=== PATIENT | male | born 1970 | race Two or more races ===

== ENCOUNTER → 2020-06-08 11:42 | Outpatient (BNVA) | payer OTHER, SELFPAY | PROVIDERS: PCP Internal Medicine; Visit Provider Physician Assistant ==

== ENCOUNTER 2022-07-17 11:58 | Outpatient (REF) | payer OTHER, SELFPAY ==
[2022-07-17 14:30] LABS: Alanine Aminotransferase 21 U/L (0-40); Anion Gap 12 (12-20); Aspartate Amino Transferase 18 U/L (5-37); Blood Urea Nitrogen 14 mg/dL (9-16); Calcium 9.4 mg/dL (8.4-10.2); Carbon Dioxide 29 mmol/L (22-29); Chloride 105 mmol/L (96-108); Cholesterol 183 mg/dL; Estimated Glomerular Filt Rate > 60; Glucose Fasting 99 mg/dL (60-99); HDL Cholesterol 37 mg/dL; LDL Cholesterol Calculated 115 mg/dl; Potassium 4.4 mmol/L (3.3-5.1); Sodium 142 mmol/L (135-145); Triglycerides 158 mg/dL
[2022-07-17 14:45] LABS: PSA,Total (Free>4and<10) 0.41 ng/mL (0.00-4.00); Vitamin D 25-OH Total 24.7 ng/mL (>30)
[2022-07-25 13:57] LABS: Testosterone, Total 204 ng/dL (250-1100)
== END 2022-07-17 11:59 | disposition home or self-care (01) ==
LOC: HO.HMGCLDS 11:58
PROVIDERS: PCP Internal Medicine; Visit Provider Internal Medicine
DX: Z00.01 Encounter for general adult medical examination with abnormal findings (principal); Z12.5 Encounter for screening for malignant neoplasm of prostate; G47.33 Obstructive sleep apnea (adult) (pediatric); N52.9 Male erectile dysfunction, unspecified; E66.9 Obesity, unspecified
CPT/HCPCS: 36415; 80048; 80061; 82306; 84153; 84402; 84403; 84450; 84460

== ENCOUNTER → 2022-08-10 08:21 | Outpatient (BNVA) | payer OTHER, SELFPAY | PROVIDERS: PCP Internal Medicine; Visit Provider Nurse Practitioner Family | DX: Z13.89 Encounter for screening for other disorder (principal) ==

== ENCOUNTER → 2022-08-24 09:40 | Outpatient (REF) | payer OTHER, SELFPAY | LOC: HO.SL 09:40 | PROVIDERS: PCP Internal Medicine; Visit Provider Nurse Practitioner Family | DX: G47.33 Obstructive sleep apnea (adult) (pediatric) (principal); E66.9 Obesity, unspecified | CPT/HCPCS: 95806 ==

== ENCOUNTER → 2022-08-25 14:58 | Outpatient (BNVA) | payer OTHER, SELFPAY | PROVIDERS: PCP Internal Medicine; Visit Provider Nurse Practitioner Family | DX: Z13.89 Encounter for screening for other disorder (principal) ==

== ENCOUNTER → 2022-11-16 15:07 | Outpatient (BNVA) | payer OTHER, SELFPAY | PROVIDERS: PCP Internal Medicine; Visit Provider Nurse Practitioner Family | DX: E66.9 Obesity, unspecified (principal); G47.33 Obstructive sleep apnea (adult) (pediatric) ==

== ENCOUNTER 2023-05-21 14:02 | Outpatient (AMB) | payer OTHER, SELFPAY ==
--- NOTE | 2023-05-21 14:10 | A.OFFVIS_ITS ---
Intake Vital Signs 05/21/23 14:11 Height 5 ft 6 in Weight 200 lb BMI 32.3 BP 140/90 H Blood Pressure Location Rt brachial Position Sitting Pulse 66 Pulse Source Pulse Oximeter Pulse Oximetry (%) 97 Oxygen Delivery Method Room Air Intake Visit Reasons: 6m follow up JESÚS - LVM Intake Note: Pt complaints of elbow/arm neuropathy Allergies No Known Allergies Allergy (Verified 05/21/23 14:14) HPI HPI Comments History of Present Illness Details 52 y/o male patient presents for follow up of sleep study. The home sleep study result was significant for moderate degree of sleep apnea. The AHI was 22/hr and oxygen annia was 88%. Pt started APAP [id number] ordered. Pt states that he sleeps ok but uncomfortable. He feels too much pressure and having nasal congestion, too. The CPAP pressure was changed to [id number] at the last visit. The CPAP compliance and therapy response (02/20/23-05/20/23) reviewed. The usage days 91% and the average usage hours 4 hrs 50 min. The max pressure was 13.7 and the residual AHI was 2.7/hr. Pt reports he sleeps ok with CPAP but his mouth gets dry. He feels better in the morning, more alert and less tired. [facility] Medical History Low serum testosterone level Vitamin D deficiency Erectile dysfunction Obesity (BMI 30.0-34.9) Moderate obstructive sleep apnea Sleep apnea Surgical History No pertinent past surgical history Family History Mother Acute myocardial infarction, Onset Age: 72 Brother Diabetes mellitus Social History Housing: Apartment Alcohol intake: never Patient Tobacco Use Status: Never used Tobacco e-Cigarette/Vaping Use: Never Used service: No Current occupational status: employed Cognitive needs: No Hearing needs: No Vision needs: No Review of Systems Const All systems reviewed & are unremarkable except as noted in HPI and below ENT Reports Normal hearing present Neuro Reports Normal hearing present Physical Exam Vital Signs: Last Vital Signs Pulse 66 05/21/23 14:11 BP 140/90 H 05/21/23 14:11 Pulse Ox 97 05/21/23 14:11 Oxygen Delivery Method Room Air 05/21/23 14:11 BMI result Body Mass Index 28.7 Const General: cooperative Nutritional Appearance: obese Orientation/consciousness: patient oriented x3 Neck Neck: Yes full ROM and Yes supple Resp Effort & Inspection: normal respiratory effort and able to speak in complete sentences Neuro General: patient oriented x3, gait normal and moves all extremities Cranial nerves: Yes Bilaterally intact EOM present, Yes Midline tongue present, Yes Symmetric palate elevation present, Yes Normal hearing present, Yes Ability to bilaterally rotate head present and Yes Ability to bilaterally elevate shoulders present Cognition (Neuro): normal cognition Gait exam (Neuro): Normal gait present Motor exam (neuro): 5/5 motor strength present throughout, Pronator motor function not present and no tremor noted Psych Appearance: grossly normal Mental Status: mental status grossly normal Speech and movement: Normal speech and movement present Affect: normal affect Attitude: cooperative Assessment & Plan Assessment & Plan (1) Moderate obstructive sleep apnea: Comment: The AHI was 22/hr and oxygen annia was 88% Code(s): G47.33 - Obstructive sleep apnea (adult) (pediatric) Plan Advised patient to continue to use APAP at [id number]. Stressed compliance, use CPAP nightly and more than 4 hours. Adjust humidifier setting to manage dry mouth. Continue to practice good sleep hygiene. Wt reduction advised. Coding Level of Care Code Est Pt Level 3 (25722) Diagnoses Moderate obstructive sleep apnea G47.33
[2023-05-21 14:11] VITALS: BP 140/90; PULSE 66; O2SAT 97; BMI 32.3
== END 2023-05-21 14:30 | disposition home or self-care (01) ==
PROVIDERS: PCP Internal Medicine; Visit Provider Nurse Practitioner Family
DX: G47.33 Obstructive sleep apnea (adult) (pediatric) (principal)
CPT/HCPCS: 99213

== ENCOUNTER → 2023-05-21 14:02 | Outpatient (BNVA) | payer OTHER, SELFPAY | PROVIDERS: PCP Internal Medicine; Visit Provider Nurse Practitioner Family | DX: E66.9 Obesity, unspecified (principal); G47.33 Obstructive sleep apnea (adult) (pediatric) ==

== ENCOUNTER 2023-07-25 10:45 | Outpatient (AMB) | payer OTHER, SELFPAY ==
--- NOTE | 2023-07-25 11:08 | A.OFFPC_ITS ---
Vital Signs 07/25/23 11:23 Height 5 ft 6 in Weight 203 lb BMI 32.8 BP 100/62 Blood Pressure Location Lt brachial Position Sitting Pulse 65 Pulse Source Pulse Oximeter Pulse Oximetry (%) 98 Oxygen Delivery Method Room Air Intake Visit Reasons: Annual PE Intake Note: Pt is here today for his PE Allergies No Known Allergies Allergy (Verified 07/25/23 11:39) Medication List - Last Reconciled 07/25/23 by Sarah Larson MD ascorbate calcium (vitamin C) 500 mg PO DAILY cholecalciferol (vitamin D3) 5,000 units PO DAILY magnesium 300 mg PO DAILY multivitamin 1 tab PO DAILY Tobacco use date assessed: 07/25/23 Dental Screening Dental Screen Date: 07/25/23 Did you have a dental visit in the last 12 months?: No Was dental information given to patient?: Patient declined HPI Annual PE HPI Details 52-year-old male here today for his phys ical exam. He has been diagnosed with moderate obstructive sleep apnea sleep apnea in the past, was unable to tolerate CPAP.. Has been cleaning of feeling tired all the time, with interrupted sleep, increased fatigue. Would like to be referred back for repeat sleep study . Has been diagnosed to have hypogonadism with low serum testosterone, previously seen by [facility] see Urology, but has been lost to follow- up. As per patient and , they were not aware that he had repeat labs to be drawn, and was not given a follow-up appointment with them. Has been complaining of feeling tired all the time, and has recurrent joint pains and stiffness mainly in his elbows and knees as well as his lower back . 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 Patient states it is states that she has tried massaging arthritis cream, apply moist heat, and given him some Tylenol which has afforded only minimal relief. He has never had a screening colonoscopy done. Does not want to get any COVID vaccination or flu shot, up-to-date with his Tdap.. [facility] Medical History Low serum testosterone level Vitamin D deficiency Erectile dysfunction Obesity (BMI 30.0-34.9) Moderate obstructive sleep apnea Sleep apnea Surgical History No pertinent past surgical history Family History Mother Acute myocardial infarction, Onset Age: 72 Brother Diabetes mellitus Social History Housing: Apartment Alcohol intake: never Patient Tobacco Use Status: Never used Tobacco e-Cigarette/Vaping Use: Never Used service: No Current occupational status: employed Cognitive needs: No Hearing needs: No Vision needs: No Questionnaire PHQ-9 Over the last 2 weeks, how often have you been bothered by any of the following problems? Depression Screening Interpretation: Negative Depression Screening Done: Yes 89829 - PHQ-9 Billing: Patient declined-do not bill Source: Developed by Drs. Zan Barros, Cynthia Gupta, Harsha Bro and colleagues, with an educational trent from [employer]. Thrive Questionnaire Date Thrive assessed: 07/25/23 I am a: Patient What is your living situation today?: I have a steady place to live Within the past 12 months, did the food you bought not last and you didn't have the money to get more?: Sometimes True Within the past 12 months, did you worry whether your food would run out before you got money to buy more?: Sometimes True Do you have trouble paying for medicines?: No Do you have trouble getting transportation to medical appointments?: No Do you have trouble paying your heating and electricity bill?: Yes Do you have trouble taking care of your child, family member or friend?: No Do you have trouble with day-to-day activities such as bathing, preparing meals, shopping, managing finances, etc.?: Yes Are you currently unemployed and looking for a job?: No Are you interested in more education?: No THRIVE Score: 3 AUDIT C Alcohol Use Questionnaire (AUDIT-C) 1. How often do you have a drink containing alcohol?: Never Total Score: 0 WILFREDO-7 AMB Questionnaire WILFREDO-7 Date WILFREDO - 7 assessed: 07/25/23 Feeling nervous, anxious, or on edge: 1 = Several days Not being able to stop or control worryin = Not at all Worrying too much about different things: 1 = Several days Trouble relaxin = Several days (Due to recurrent joint pains) Being so restless that it is hard to sit still: 0 = Not at all Becoming easily annoyed or irritable: 1 = Several days Feeling afraid as if something awful might happen: 0 = Not at all Total WILFREDO-7 score (0-4 normal; 5-9 mild; 10-14 moderate; 15-21 severe): 4 Source: Developed by Drs. Zan Barros, Cynthia Gupta, Harsha Bro and colleagues, with an educational trent from [employer]. Review of Systems Const Denies headache(s), Denies poor appetite, Reports snoring and Denies weakness Eyes Details: has reading glasses, sees [facility] Denies change in vision ENT Denies dizziness, Denies headache(s), Denies nasal congestion, Denies nasal discharge and Denies sore throat Card Denies chest pain, Denies lightheadedness, Denies palpitations and Denies dyspnea Resp Denies dyspnea, Reports snoring and Denies wheezing GI Denies abdominal pain, Denies change in bowel habits and Denies heartburn Denies hematuria, Denies difficulty urinating, Denies dysuria, Denies urinary frequency and Denies urinary urgency Musc Reports as per HPI Skin/Breast Denies lesions and Denies rash Neuro Denies dizziness, Denies headache(s) and Denies weakness Psych Reports as per HPI Endo Denies polydipsia, Denies polyuria and Denies palpitations Dustin/Lymph Denies easy bruising Aller/Immun Denies seasonal rhinorrhea and Denies wheezing Physical exam (Primary Care) Vital Signs: Last Vital Signs Pulse 65 07/25/23 11:23 BP 100/62 07/25/23 11:23 Pulse Ox 98 07/25/23 11:23 Oxygen Delivery Method Room Air 07/25/23 11:23 BMI result Body Mass Index 32.8 Tobacco/Smoking Status: Tobacco use Status Tobacco use date assessed 07/25/23 07/25/23 11:29 Patient Tobacco Use Status Never used Tobacco 07/25/23 11:10 e-Cigarette/Vaping Use Never Used 07/25/23 11:10 Depression Screening Interpretation: Negative Thrive Assessment: Date of Thrive Assessment Date Thrive assessed 07/25/23 07/25/23 11:10 Const Other: present General: healthy appearing, comfortable, no acute distress and alert Nutritional Appearance: obese Orientation/consciousness: patient oriented x3 [facility] Head: Yes normocephalic Ears: hearing grossly normal bilaterally and external ears normal General nose exam: Normal external nose present and No nasal discharge present Face and sinus: Yes face symmetric Mouth: Normal oral and palatal mucosa present, oropharynx normal and moist mucous membranes Eyes General: appearance normal, both eyes and all related structures Pupils: Equal, round and reactive pupils present EOM: EOMs intact bilaterally Neck Neck: Yes full ROM, Yes no lymphadenopathy and Yes supple Thyroid: Thyroid normal Chest Chest palpation & inspection: normal inspection of the chest Resp Effort & Inspection: normal respiratory effort and able to speak in complete sentences Auscultation: clear to auscultation bilaterally Cardio Rate: regular rate Rhythm: regular rhythm Heart sounds: S1 normal heart sound present and S2 normal heart sound present Bruits: no abdominal aortic bruits GI Palpation (GI): No Abdominal aortic bruit present, Soft to palpation, nontender and no masses Auscultation: normal bowel sounds General: Yes no CVA tenderness Male General Exam: Yes normal external exam Penis: normal penis Back/Spine/Pelvis Back: no CVA tenderness Skin General skin exam: no rashes or lesions noted Lesions: no lesions Rashes: no rashes Neuro General: patient oriented x3, gait normal, moves all extremities, Normal light touch and pain sensation, no focal motor deficits and CN's II-XI intact bilaterally Cranial nerves: Yes Equal, round and reactive pupils present Cognition (Neuro): normal cognition Gait exam (Neuro): Normal gait present Motor exam (neuro): 5/5 motor strength present throughout Extrem Other: Slight tenderness on palpation over left lateral epicondylar area, with no gross bone deformity or joint swelling seen. Full range of motion of joint noted General: Yes full ROM, Yes no joint enlargement, Yes no clubbing, cyanosis or edema, Yes no calf tenderness and Yes normal gait Psych Appearance: grossly normal Mental Status: mental status grossly normal Speech and movement: Normal speech and movement present Affect: normal affect Attitude: cooperative Thought process: Normal thought process present Thought content: Normal thought content present Assessment and Plan Assessment & Plan (1) Annual visit for general adult medical examination with abnormal findings: Code(s): Z00.01 - Encounter for general adult medical examination with abnormal findings Plan: Will check appropriate labs. Recommended dental visit every 6 months and regular eye exams, at least every 2 years. Take adequate calcium in diet and vitamin-D 3 at 2000 IU per cap once a day, in addition to weight-bearing exercises to help maintain good muscle tone and weight control. Patient declined getting COVID vaccine or flu shot, reminded to get his shingles vaccine, up-to-date with his Tdap (2) Vitamin D deficiency: Code(s): E55.9 - Vitamin D deficiency, unspecified Plan: Ordered the vitamin-D level (3) Obesity (BMI 30.0-34.9): Code(s): E66.9 - Obesity, unspecified Plan: Recommended focusing on improving your health instead of dieting. : Eat Mediterranean diet, limit foods high in fat, sugar, and calories, eat slowly, pay attention to portion sizes, plan your meals ahead of time, continue with regular exercise. (4) Colon cancer screening: Code(s): Z12.11 - Encounter for screening for malignant neoplasm of colon Plan: GI consult ordered for colon cancer screening (5) Low serum testosterone level: Code(s): R79.89 - Other specified abnormal findings of blood chemistry Plan: Inform patient that his urologist ordered repeat labs to be done, advised to schedule appointment with Urology for follow-up after labs were done peer (6) Moderate obstructive sleep apnea: Comment: The AHI was 22/hr and oxygen annia was 88% Code(s): G47.33 - Obstructive sleep apnea (adult) (pediatric) Orders: Orders Vitamin D 25-OH Total 07/25/23 E55.9 - Vitamin D deficiency, unspecified, E66.9 - Obesity, unspecified, Z00.01 - Encounter for general adult medical examination with abnormal findings Varicella IgG Antibody 07/25/23 Z01.84 - Encounter for antibody response examination Comprehensive [place]. Panel Fast 07/25/23 E55.9 - Vitamin D deficiency, unspecified, E66.9 - Obesity, unspecified, Z00.01 - Encounter for general adult medical examination with abnormal findings Lipid Panel 07/25/23 E55.9 - Vitamin D deficiency, unspecified, E66.9 - Obesity, unspecified, Z00.01 - Encounter for general adult medical examination with abnormal findings Referrals Gastroenterology Referral Z12.11 - Encounter for screening for malignant neoplasm of colon Sleep Medicine Referral G47.33 - Obstructive sleep apnea (adult) (pediatric), R06.83 - Snoring, R40.0 - Somnolence, R53.83 - Other fatigue Coding Level of Care Code Est Pt Prev Care 40-64y(85435) Diagnoses Annual visit for general adult medical examination with abnormal findings Z00.01 Vitamin D deficiency E55.9 Obesity (BMI 30.0-34.9) E66.9 Colon cancer screening Z12.11 Low serum testosterone level R79.89 Moderate obstructive sleep apnea G47.33
[2023-07-25 11:23] VITALS: BP 100/62; PULSE 65; O2SAT 98; BMI 32.8
== END 2023-07-25 12:18 | disposition home or self-care (01) ==
PROVIDERS: Visit Provider Internal Medicine
DX: Z00.00 Encounter for general adult medical examination without abnormal findings (principal); E55.9 Vitamin D deficiency, unspecified; E66.9 Obesity, unspecified; Z68.32 Body mass index [BMI] 32.0-32.9, adult; Z12.11 Encounter for screening for malignant neoplasm of colon; R79.89 Other specified abnormal findings of blood chemistry; G47.33 Obstructive sleep apnea (adult) (pediatric)
CPT/HCPCS: 99396

== ENCOUNTER 2023-07-26 06:09 | Outpatient (REF) | payer OTHER, SELFPAY ==
[2023-07-26 12:22] LABS: Alanine Aminotransferase 29 U/L (0-40); Albumin Level 4.3 g/dL (3.5-5.0); Alkaline Phosphatase 70 U/L (39-117); Anion Gap 14 (12-20); Aspartate Amino Transferase 25 U/L (5-37); Bilirubin Total 0.5 mg/dL (0.0-1.0); Blood Urea Nitrogen 10 mg/dL (9-16); Calcium 9.8 mg/dL (8.4-10.2); Carbon Dioxide 27 mmol/L (22-29); Chloride 104 mmol/L (96-108); Cholesterol 179 mg/dL (<200); Estimated Glomerular Filt Rate > 60; Glucose Fasting 101 mg/dL (60-99); HDL Cholesterol 43 mg/dL (>40); LDL Cholesterol Calculated 118 mg/dL (<100); Potassium 4.6 mmol/L (3.3-5.1); Sodium 140 mmol/L (135-145); Total Protein 7.3 g/dL (6.5-8.0); Triglycerides 91 mg/dL (<150)
[2023-07-26 12:48] LABS: Vitamin D 25-OH Total 56.1 ng/mL (>30)
== END 2023-07-26 06:10 | disposition home or self-care (01) ==
LOC: HO.HMGCLDS 06:09
PROVIDERS: PCP Internal Medicine; Visit Provider Internal Medicine
DX: Z00.01 Encounter for general adult medical examination with abnormal findings (principal); E55.9 Vitamin D deficiency, unspecified; E66.9 Obesity, unspecified
CPT/HCPCS: 36415; 80053; 80061; 82306; 86787

== ENCOUNTER 2023-10-29 11:02 | Outpatient (AMB) | payer OTHER, SELFPAY ==
--- NOTE | 2023-10-29 11:17 | A.OFFVIS_ITS ---
Vital Signs 10/29/23 11:38 Height 5 ft 6 in Weight 197 lb 1.492 oz BMI 31.8 BP 108/66 Blood Pressure Location Lt brachial Position Sitting Pulse 60 Pulse Source Pulse Oximeter Pulse Oximetry (%) 98 Oxygen Delivery Method Room Air Intake Visit Reasons: Colonoscopy Screening Intake Note: Andrea presents in office today for a routine colo s/p scrn CC; Pt denies any prior hx of colo s/p. Pt reports that their PCP recommended based off of age. Pt denies any sx or concerns at this time related to GI. 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 male with past medical history of lymphadenopathy, JESÚS, vitamin-D deficiency is here today for pre colonoscopy screening.? Patient was sent to us by his PCP.? Patient is accompanied by his . This is his first colonoscopy screening.? Patient denies any gastrointestinal symptoms in the past or at present.? Denies any personal or family history of gastrointestinal disease, colon polyps, or CRC.? Denies history of difficulty with sedation or anesthesia in the past.? History of sleep apnea, using CPAP every night. Denies any history of cardiac, renal, pulmonary, or hepatic disease.?? No history of infectious? diseases like hepatitis A, B, C, HIV or tuberculosis.? Patient is not on any anticoagulation [facility] Medical History Low serum testosterone level Vitamin D deficiency Erectile dysfunction Obesity (BMI 30.0-34.9) Moderate obstructive sleep apnea Sleep apnea Surgical History No pertinent past surgical history Family History Mother Acute myocardial infarction, Onset Age: 72 Brother Diabetes mellitus Social History Housing: Apartment Alcohol intake: never Patient Tobacco Use Status: Never used Tobacco e-Cigarette/Vaping Use: Never Used service: No Current occupational status: employed Cognitive needs: No Hearing needs: No Vision needs: No Review of Systems Const Denies weight gain and Denies weight loss ENT Reports no additional complaints, Denies dysphagia and Denies odynophagia Card Reports no additional complaints Resp Reports no additional complaints GI Denies abdominal pain, Denies belching, Denies melena, Denies bloating, Denies change in bowel habits, Denies dysphagia, Denies excessive flatus, Denies dyspepsia, Denies heartburn, Denies diarrhea, Denies loose stools, Denies nausea, Denies odynophagia and Denies vomiting Reports no additional complaints Musc Reports no additional complaints Neuro Reports no additional complaints Psych Reports no additional complaints Endo Reports no additional complaints Physical Exam Vital Signs: Last Vital Signs Pulse 60 10/29/23 11:38 BP 108/66 10/29/23 11:38 Pulse Ox 98 10/29/23 11:38 Oxygen Delivery Method Room Air 10/29/23 11:38 BMI result Body Mass Index 31.8 Const General: healthy appearing and no acute distress Nutritional Appearance: obese Orientation/consciousness: patient oriented x3 Resp Effort & Inspection: normal respiratory effort, able to speak in complete sentences, no tracheal deviation and symmetric chest movement Auscultation: clear to auscultation bilaterally Cardio Rate: regular rate GI Inspection: Yes normal to inspection, No distended and Yes obesity Palpation (GI): Soft to palpation, not firm, nontender and No hepatosplenomegaly present Auscultation: normal bowel sounds General: Yes no CVA tenderness Back/Spine/Pelvis Back: no CVA tenderness Skin General skin exam: elasticity normal, turgor normal and dry skin Neuro General: patient oriented x3 Psych Appearance: grossly normal Mental Status: mental status grossly normal Assessment & Plan Assessment & Plan (1) Colon cancer screening: Code(s): Z12.11 - Encounter for screening for malignant neoplasm of colon Plan Patient denies any GI, cardiac or respiratory symptoms.? Denies any issues with anesthesia in the past.?Patient has sleep apnea and has been using CPAP every night. No history infectious diseases in the past or present.? Not on any anticoagulation therapy.? No family or personal history of colon cancer or polyps.? Patient denies melena, hematochezia, unintentional weight loss or ribbon like stools.? Discussed at length the pre-procedure,? prep, diet & medications as well as what to expect prior, during and after the procedure.?? Stressed the importance of good bowel prep.? Recommended the use of Vaseline or Calmoseptine OTC & baby wipes with bowel movements to promote comfort.? ?Patient verbalizes understanding and agrees to plan of care.? He was given the opportunity to ask questions and all questions answered.? We will see him after the procedure.? Medications: New bisacodyl (Dulcolax (bisacodyl)) take 4 tabs at noon the day before your colonoscopy 20 mg (4 x 5 mg) PO ONCE 1 day 4 tabs 0RF Z12.11 - Encounter for screening for malignant neoplasm of colon polyethylene glycol 3350 (Miralax) As directed by gastroenterology department at [facility] 238 grams PO ONCE 238 grams 0RF Z12.11 - Encounter for screening for malignant neoplasm of colon Coding Level of Care Code New Pt Level 3 (15769) Diagnoses Colon cancer screening Z12.11 Time Spent (min) 40 Comment 30 minutes spent with patient and additional 10 minutes spent reviewing his records
[2023-10-29 11:38] VITALS: BP 108/66; PULSE 60; O2SAT 98; BMI 31.8
== END 2023-10-29 12:48 | disposition home or self-care (01) ==
PROVIDERS: PCP Internal Medicine; Visit Provider Nurse Practitioner Family
DX: Z12.11 Encounter for screening for malignant neoplasm of colon (principal); Z01.818 Encounter for other preprocedural examination
CPT/HCPCS: 99203

== ENCOUNTER → 2023-10-29 11:02 | Outpatient (BNVA) | payer OTHER, SELFPAY | PROVIDERS: PCP Internal Medicine; Visit Provider Nurse Practitioner Family ==

== ENCOUNTER 2024-05-21 15:20 | Outpatient (AMB) | payer OTHER, SELFPAY ==
--- NOTE | 2024-05-21 15:44 | MHC.OFFVIS ---
Vital Signs 05/21/24 15:48 Height 5 ft 6 in Weight 190 lb 2 oz BMI 30.7 BP 100/70 Blood Pressure Location Lt brachial Position Sitting Pulse 78 Pulse Oximetry (%) 98 Oxygen Delivery Method Room Air Intake Visit Reasons: 1 yr f/u appt Figure Skater Required: No Allergies No Known Allergies Allergy (Verified 05/21/24 15:48) Medication List - Last Reconciled 05/21/24 by CARRIE Swanson ascorbate calcium (vitamin C) 500 mg PO DAILY bisacodyl (Dulcolax (bisacodyl)) 20 mg (4 x 5 mg) PO ONCE 1 day cholecalciferol (vitamin D3) 5,000 units PO DAILY magnesium 300 mg PO DAILY multivitamin 1 tab PO DAILY polyethylene glycol 3350 (Miralax) 238 grams PO ONCE Do you need a note to return to daycare/school/sports/work: No HPI Comments Details: 53 y/o male patient presents for follow up of moderate obstructive sleep apnea. Patient is accompanied by his . Patient reports overall he is not tolerating his Pap therapy well. He often feels like he is suffocating, especially when he inhales. Even while using CPAP, he continues to snore at the same level. He is also having dry mouth. He uses plane tap water in his CPAP water reservoir. He continues to have daytime drowsiness. He does drive quite a bit for work. He states he had a ENT consult last year some time, was told that he has multiple allergies and was advised to take Flonase nasal spray. He states he does a nasal saline rinse and Flonase, however this has not significantly helped. 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 [address], [address] Email: [email or web address] Compliance Report Usage 04/21/2024 - 05/20/2024 Usage days 26/30 days (87%) >= 4 hours 13 days (43%) < 4 hours 13 days (43%) Usage hours 115 hours 52 minutes Average usage (total days) 3 hours 52 minutes Average usage (days used) 4 hours 27 minutes Median usage (days used) 3 hours 46 minutes Total used hours (value since last reset - 05/20/2024) 1,975 hours AirSense 10 AutoSet Serial number [id number] Mode AutoSet Min Pressure 5 cmH2O Max Pressure 15 cmH2O EPR Fulltime EPR level 3 Response Standard Therapy Pressure - cmH2O Median: 8.1 95th percentile: 12.5 Maximum: 13.6 Leaks - L/min Median: 9.9 95th percentile: 23.2 Maximum: 34.7 Events per hour AI: 3.6 HI: 0.7 AHI: 4.3 PFSH Medical History Low serum testosterone level Vitamin D deficiency Erectile dysfunction Obesity (BMI 30.0-34.9) Moderate obstructive sleep apnea Sleep apnea Surgical History No pertinent past surgical history Family History Mother Acute myocardial infarction, Onset Age: 72 Brother Diabetes mellitus Social History Housing: Apartment Alcohol intake: never Patient Tobacco Use Status: Never used Tobacco e-Cigarette/Vaping Use: Never Used service: No Current occupational status: employed Cognitive needs: No Hearing needs: No Vision needs: No Physical Exam Vital Signs: Last Vital Signs Pulse 78 05/21/24 15:48 BP 100/70 05/21/24 15:48 Pulse Ox 98 05/21/24 15:48 Oxygen Delivery Method Room Air 05/21/24 15:48 BMI result Body Mass Index 30.7 Const General: no acute distress Orientation/consciousness: patient oriented x3 Resp Effort & Inspection: able to speak in complete sentences Neuro General: patient oriented x3 Psych Mental Status: mental status grossly normal Speech and movement: Clear speech present Attitude: cooperative Assessment & Plan Assessment & Plan (1) Moderate obstructive sleep apnea: Comment: The AHI was 22/hr and oxygen annia was 88% Code(s): G47.33 - Obstructive sleep apnea (adult) (pediatric) Category: Medical Plan Reviewed results of sleep study report, results c/w moderate obstructive sleep apnea. Discussed complications a/w untreated JESÚS, including but not limited to accidents related to drowsy driving. 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 Pap settings changed via pt's [employer] Account in hopes that this will improve PAP tolerance. Discontinue APAP 5-15 cm H2O with EPR 3 and humidification level 4. Start CPAP 8 cm H2O EPR 3 humidification level set to 5, with goal of using PAP therapy nightly greater than 4 hours in order to have best clinical effect. Will check Pap compliance report in 2 weeks to assess efficacy. Patient also encouraged to use only distilled water in his CPAP water reservoir. Continue saline nasal rinses followed by Flonase per ENT. Try adding as a lasting nasal spray 1-2 sprays into each nares q.h.s- the proper administration technique reviewed with patient. If the above changes do not help with oral dryness, trial OTC Xylimelt 1-2 tabs attached gum q.h.s. Will also request patient follow-up with ENT to assess for alternate sleep apnea treatment interventions to PAP therapy. Did discuss that patient may be a good candidate for inspire device, which he was unfamiliar with. I have asked him to review this more, and explained that ENT would need to complete further evaluations to determine if he truly would be a good candidate for this. Clean CPAP machine and supplies routinely. Change CPAP supplies routinely. Pt to contact us or respiratory company with any questions or concerns. Written instructions given to patient Will follow-up upon review of above and patient to follow-up in clinic in 6 months or sooner prn. Orders: Referrals Ear/Nose/Throat Referral G47.33 - Obstructive sleep apnea (adult) (pediatric) Medications: New fluticasone propionate 50 mcg/actuation administer into each nostril 2 sprays intranasal DAILY PRN azelastine administer into each nostril 2 sprays intranasal BID 30 days 30 mL 3RF Coding Level of Care Code Est Pt Level 4 (13409) Diagnoses Moderate obstructive sleep apnea G47.33
[2024-05-21 15:48] VITALS: BP 100/70; PULSE 78; O2SAT 98; BMI 30.7
== END 2024-05-21 16:27 | disposition home or self-care (01) ==
PROVIDERS: PCP Internal Medicine; Visit Provider Nurse Practitioner Family
DX: G47.33 Obstructive sleep apnea (adult) (pediatric) (principal)
CPT/HCPCS: 99214

== ENCOUNTER → 2024-05-21 15:20 | Outpatient (BNVA) | payer OTHER, SELFPAY | PROVIDERS: PCP Internal Medicine; Visit Provider Nurse Practitioner Family ==

== ENCOUNTER 2024-06-12 10:19 | Day surgery (SDC) | payer BC, SELFPAY ==
[2024-06-10 14:55] VITALS: BMI 30.7
--- NOTE | 2024-06-11 11:58 | HO.ANESPROP2 ---
Documented by User: Shania Newsome NP 06/11/24 11:59 HPI - Anesthesia Eval Consult details Narrative: 53yo M for Colonoscopy PMFSH Active Problems Active Problems: All Active Problems Lymphadenopathy, axillary (Acute) Low serum testosterone level (Acute) Vitamin D deficiency (Acute) Erectile dysfunction (Acute) Obesity (BMI 30.0-34.9) (Acute) Moderate obstructive sleep apnea (Acute) Past Medical History Medical History Low serum testosterone level Vitamin D deficiency Erectile dysfunction Obesity (BMI 30.0-34.9) Moderate obstructive sleep apnea Family History Family History Mother Acute myocardial infarction, Onset Age: 72 Brother Diabetes mellitus Surgical History Surgical History No pertinent past surgical history Social History Social History Housing: Apartment Alcohol intake: never Patient Tobacco Use Status: Never used Tobacco e-Cigarette/Vaping Use: Never Used Have you been hit, kicked, punched, or otherwise hurt by someone within the past year? If so, by whom?: No Are you DNR?: No Advance Directives: No Advance Directives Information Provided: Yes service: No Current occupational status: employed Cognitive needs: No Hearing needs: No Vision needs: No Meds Allergies Allergy/AdvReac Type Severity Reaction Status Date / Time No Known Allergies Allergy Verified 05/21/24 15:48 Home Medications ?Medication ?Instructions ?Recorded ?Confirmed ?Last Taken ?Type ascorbate calcium (vitamin C) 500 500 mg PO DAILY 07/25/23 06/10/24 Unknown History mg tablet magnesium 200 mg tablet 300 mg PO DAILY 07/25/23 06/10/24 Unknown History multivitamin 1 tab PO DAILY 07/25/23 06/10/24 Unknown History fluticasone propionate 50 2 spray intranasal DAILY PRN Nasal 05/21/24 06/10/24 Unknown History mcg/actuation nasal Congestion spray,suspension Exam Height,Weight and Vital Signs: Height 5 ft 6 in Weight 86.183 kg Assessment and Plan Assessment Anesthesia Assessment: Chart Reviewed Documented by User: Cheryl Benitez MD 06/12/24 11:35 PMFSH Active Problems Active Problems: All Active Problems Lymphadenopathy, axillary (Acute) Low serum testosterone level (Acute) Vitamin D deficiency (Acute) Erectile dysfunction (Acute) Obesity (BMI 30.0-34.9) (Acute) Moderate obstructive sleep apnea. Uses CPAP machine Past Medical History Medical History Low serum testosterone level Vitamin D deficiency Erectile dysfunction Obesity (BMI 30.0-34.9) Moderate obstructive sleep apnea Family History Family History Mother Acute myocardial infarction, Onset Age: 72 Brother Diabetes mellitus Family history of problems with anesthesia: No Surgical History Surgical History No pertinent past surgical history History of Problems with Anesthesia: No Social History Social History Housing: Apartment Alcohol intake: never Patient Tobacco Use Status: Never used Tobacco e-Cigarette/Vaping Use: Never Used Have you been hit, kicked, punched, or otherwise hurt by someone within the past year? If so, by whom?: No Are you DNR?: No Advance Directives: No Advance Directives Information Provided: Yes service: No Current occupational status: employed Cognitive needs: No Hearing needs: No Vision needs: No Meds Allergies Allergy/AdvReac Type Severity Reaction Status Date / Time No Known Allergies Allergy Verified 05/21/24 15:48 Home Medications ?Medication ?Instructions ?Recorded ?Confirmed ?Last Taken ?Type ascorbate calcium (vitamin C) 500 500 mg PO DAILY 07/25/23 06/10/24 Unknown History mg tablet magnesium 200 mg tablet 300 mg PO DAILY 07/25/23 06/10/24 Unknown History multivitamin 1 tab PO DAILY 07/25/23 06/10/24 Unknown History fluticasone propionate 50 2 spray intranasal DAILY PRN Nasal 05/21/24 06/10/24 Unknown History mcg/actuation nasal Congestion spray,suspension Exam Height,Weight and Vital Signs: Height 5 ft 6 in Weight 86.183 kg Vital Signs Temp Pulse Resp BP Pulse Ox O2 Del Method 06/12/24 11:06 98.4 F 63 18 115/79 99 Room Air Airway Mallampati Class: III (Slight overbite ) TM Dist: >3cm Neck ROM: Full Loose/Missing/Broken Teeth: Yes (Missing some teeth back. Denies broken or loose teeth) Heart: RRR Lungs: CTAB Assessment and Plan Assessment Anesthesia Assessment: Anesthesia Plan Discussed and Chart Reviewed Final Anesthetic Review Family History of Problems with Anesthesia: No History of Problems with Anesthesia: No NPO: Yes ASA Class: III Final Preanesthetic Review: No Changes in Pt Med Stat, Meds/Allgs Chart Reviewed, Consent Obtained/Reviewed and Anes Risks/Benef Reviewed Patient Risk: Intermediate Procedure Risk: Low Assessment/Block/Sedation in SS: Assess/Block/Sedation-SS Anesthetic Plan Anesthetic Plan: TIVA Disposition: Standard PACU
[2024-06-12 11:06] VITALS: BP 115/79; PULSE 63; RESP 18; TEMP 36.9; O2SAT 99
[2024-06-12] MEDS: Lactated Ringers 1,000 ML 100 ML IVCONT (11:24)
--- NOTE | 2024-06-12 12:27 | MHC.SHP ---
Pre-Procedural Eval Section A - 24 Hr Update-Section A only Date of Service: 06/12/24 Section B - Complete if H&P > 30 days Chief Complaint: screening Relevant Family History (Specify if Yes): No Relevant Social History: None Present Medications: see Short Stay Collaborative assessment Medical History: Significant History (Low serum testosterone level Vitamin D deficiency Erectile dysfunction Obesity (BMI 30.0-34.9) Moderate obstructive sleep apnea) History of Previous Operations: No relevant previous surgery Allergies: Allergies Allergy/AdvReac Type Severity Reaction Status Date / Time No Known Allergies Allergy Verified 05/21/24 15:48 Review of Systems Sugical H&P ROS: Negative: Constitution, Cardiovascular, Respiratory, Neurological, Psychiatric, Hem-Onc, Allergic/Immunologic, Gastrointestinal, Genitourinary, Musculoskeletal, Integumentary, Endocrine and Eyes/Ears/Nose/Throat Exam Surgical H&P Exam: Normal: HEENT, Normal: Heart, Normal: Lungs, Normal: Extremities, Normal: Abdomen, Normal: Skin and Normal: Neurological Plan Diagnosis/Plan: Unchanged I have reviewed the history and physical and performed a pertinent physical examination on my patient. No changes have occurred unless specified. Time Spent With Patient Time: Total time managing care of this patient today ____ minutes.
--- NOTE | 2024-06-12 13:05 | HO.OPN-COLON ---
Colonoscopy Operative Note Operative Note Date of Service: 06/12/24 Narrative: Operative Information Procedure Description: Colonoscopy Indication: screening Anesthesia: MAC COLONOSCOPY Instrument: Olympus variable stiffness pediatric scope 190L Colonoscopy Monitoring: Vital signs and clinical assessment, continuous EKG monitoring, Pulse oximetry, Carbon Dioxide monitoring and blood pressure monitoring were done throughout the procedure. Colon withdrawal time was 10 minutes. Procedure: The patient was placed in the left lateral decubitis position and pre-procedure medications were administered. After a digital rectal examination of the ano-rectum, the video colonoscope was inserted into the rectum and advanced through the colon to the cecum/TI. The colonoscope was slowly withdrawn in a retrograde panoramic fashion and the colon mucosa was carefully examined including a retroflexed view of the rectum. Findings and interventions are described below. Procedure Difficulty: easy Findings: Terminal Ileum-normal Cecum:normal right sided retrofelxion- normal Ascending Colon: normal Transverse Colon -normal Descending Colon: 3-4 mm sessile polyp removed with cold forceps Sigmoid Colon: mild to moderate diverticulosis Rectum: Retroflexion with small internal hemorrhoids seen, grade I Anorectum - normal Intervention: cold forceps Colon preparation: Bagwell Bowel Preparation Scale Right colon; 2 Transverse colon: 2 Left colon; 2 (0 = Unprepared colon segment with mucosa not seen due to solid stool that cannot be cleared. 1 = Portion of mucosa of the colon segment seen, but other areas of the colon segment not well seen due to staining, residual stool and/or opaque liquid. 2 = Minor amount of residual staining, small fragments of stool and/or opaque liquid, but mucosa of colon segment seen well. 3 = Entire mucosa of colon segment seen well with no residual staining, small fragments of stool or opaque liquid) Impression and Post Procedure Diagnosis: diverticulosis colon polyp internal hemorrhoids Plan: High fiber diet leaflet Avoid straining at stool, epsom salts and sitz bath, anusol supps or cream Repeat Colonoscopy in 5-7 years if adenomatous polyp, 10 yrs if hyperplastic or earlier if clinically indicated Above findings were reviewed with the patient and relevant handouts were provided if indicated.
[2024-06-12 13:10] VITALS: BP 93/52; PULSE 62; RESP 16; TEMP 36.1; O2SAT 99
[2024-06-12 13:25] VITALS: BP 106/56; PULSE 66; RESP 16; O2SAT 98
--- OUTSIDE RECORDS SUMMARY | 2024-06-12 13:47 | XMS_ITS | Clinical Summary ---
Author Organization [employer] [facility] Address [address] [place] [address] Care Team Providers Care Colors Custodian Name Role Phone Conor Mathew MD Primary Care Prov ider Allergies No known active allergies Medications tadalafil (Cialis) 10 MG tablet Take 1 tablet (10 mg) by mouth if needed each day for erectile dysfunction. 30 tablet 05/29/2024 06/28/19 25 Active Active Problems Problem Noted Date Diagnosed Date Encounter for medical examination to establish c are 05/29/2024 Assessment & Plan (05/29/2024 12:31 AM EST): Last pcp follow up 3 months ago Hx hospitalziation: - Er visit in the past year: - Pmhx: ED Pshx:- All:- Meds: Cilis 10mg Screening for colon cancer 05/29/2024 Assessment & Plan (05/29/2024 12:32 AM EST): Patient refer he has a scheduled GI appointment for April, will follow up reccomendations Erectile dysfunction 05/29/2024 Assessment & Plan (05/29/2024 12:35 AM EST): Patient denied morning erections, will prescribe cialis, follow up as needed Encounters Date Type Department Care Team Description 04/07/2024 1:45 PM EST Telemedicine [facility]EDS [address] [place], [place] [phone] Conor Mathew MD Encounter for medical examination to establish care (Primary Dx); Screening for colon cancer; Erectile dysfunction, unspecified erectile dysfunction type 04/07/2024 Travel 03/21/2024 Telephone [facility] MEDIC[facility] [address] [place] [address] Conor Mathew MD New pt appt from Last 3 Months Family History Medical History Relation Name Comments Prostate cancer Father Coronary artery disease Mother Relation Name Status Comments Father Mother Social History Tobacco Use Types Packs/Day Years Used Date Smoking Tobacco: Never Smokeless Tobacco: Never Tobacco Cessation:Counseling Given: Not Answered Alcohol Use Standard Drinks/Week Comments Never 0 (1 standard drink = 0.6 oz pur e alcohol) Depression Answer Date Recorded Patient Health Questionnaire-9 Score 4 04/07/2024 Patient Health Questionnaire-9 Score 4 04/07/2024 Last PHQ-9: Questionnaire Data Not on file 1 06/07/2023 Housing Stability Answer Date Recorded What is your housing situation today? I have dora arthur 04/07/[address] you li ve. Do you have problems with any of the following? None of the above 04/07/2024 Food Insecurity Answer Date Recorded Within the past 12 months, y ou worried that your food would run out before you got money to buy more: Never True 04/07/2024 Within the past 12 months,th e food you bought just didn't last and you didn't have enough money to get more: Never True Transportation Answer Date Recorded In the past 12 months, has l ack of transportation kept you from medical appts, meetings, work or from getting things needed for daily living? No 04/07/2024 Utilities Answer Date Recorded In the past 12 months, has t he electric, gas, oil or water company threatened to shut off services in your home? No 04/07/2024 Depression Answer Date Recorded Patient Health Questionnaire-2 Score 2 04/07/2024 Internet Access Answer Date Recorded Internet Access Q1 Yes 04/07/2024 Internet Access Q2 Not on file 04/07/2024 Comments Unknown Sex and Gender Information Value Date Recorded Sex Assigned at Unknown 01/28/2024 1:40 PM EDT Legal Sex Male 1:24 PM EDT Gender Identity Male 01/28/2024 1:40 PM EDT Sexual Orientation Don't know 01/28/2024 1: 40 PM EDT Plan of Treatment Upcoming Encounters Date Type Department Care Team (Late st Contact Info) Description 06/23/2024 2:30 PM EST Office Visit [facility] MED & PEDS [address] [place] [address] Conor Mathew MD [address] [place] [address] Health Maintenance Due Date Last Done Comments CT Colonography 1968 Colonoscopy 1968 Colorectal Cancer Screening 1968 FIT DNA/Cologuard 1968 FIT 1968 FOBT 1968 HIV Screening 1968 Lipid Panel 1968 Sigmoidoscopy 1968 Alcohol/Substance Use Screening 1980 Hepatitis C Screening 1986 DTaP/Tdap/Td Vaccines (1 - Tdap) 10/07/1987 Hepatitis B Vaccines (1 of 3 - 19+ 3-dose series) 10/07/1987 Zoster Vaccines (1 of 2) 2018 COVID-19 Vaccine ( - 2023-2 5 season) 2024 Influenza Vaccine (#1) 2024 Depression Screening 04/07/2025 04/07/2024, 04/07/2024 SDOH Screening 04/07/2025 04/07/2024 Tobacco Screening 05/29/2025 05/29/2024 RSV Patients and Patients Aged 60 years or older (1 - 1-dose 75+ series) 10/07/2043 HIB Vaccines Aged Out No longer eligi ble based on patient's age to complete this topic HPV Vaccines Aged Out No longer eligi ble based on patient's age to complete this topic Hepatitis A Vaccines Aged Out No long er eligible based on patient's age to complete this topic IPV Vaccines Aged Out No longer eligi ble based on patient's age to complete this topic Meningococcal Vaccine Aged Out No katja lakshmi eligible based on patient's age to complete this topic Pneumococcal Vaccine: Pediatrics (0 to 5 Years) and At-Risk Patients (6 to 49) Years) Aged Out No longer eligible b ased on patient's age to complete this topic RSV under 20 months Aged Out No longe r eligible based on patient's age to complete this topic Rotavirus Vaccines Aged Out No longer eligible based on patient's age to complete this topic Insurance [facility] , [address] [place] [address] Care Teams Colors Custodian Relationship Specialty Start Date End Date Conor Mathew MD [address] [place] [id number] PCP - General Internal Medicine 04/07/24
== END 2024-06-12 14:26 | disposition home or self-care (01) ==
PROVIDERS: Visit Provider Internal Medicine Gastroenterology
PROC: 0DJD8ZZ Inspection of Lower Intestinal Tract, Via Natural or Artificial Opening Endoscopic (ICD-10-PCS; CPT 45378; principal; 2024-06-12 13:10)
DX: Z12.11 Encounter for screening for malignant neoplasm of colon (principal); D12.4 Benign neoplasm of descending colon; K57.30 Diverticulosis of large intestine without perforation or abscess without bleeding; K64.0 First degree hemorrhoids; E55.9 Vitamin D deficiency, unspecified; G47.33 Obstructive sleep apnea (adult) (pediatric); N52.9 Male erectile dysfunction, unspecified; E29.1 Testicular hypofunction
CPT/HCPCS: 45380; 88305; J2704

== ENCOUNTER 2024-07-02 09:23 | Outpatient (REF) | payer OTHER, SELFPAY ==
--- OUTSIDE RECORDS SUMMARY | 2024-07-02 09:50 | XMS_ITS | Encounter Summary ---
Author Organization [employer] Address [address] [place] [address] Care Team Providers Care Form Worker Name Role Phone Conor Mathew MD Primary Care Prov ider Encounter Details Date Type Department Care Team (Latest Contact Info) Description 06/23/2024 Travel Social History Tobacco Use Types Packs/Day Years Used Date Smoking Tobacco: Never Smokeless Tobacco: Never Alcohol Use Standard Drinks/Week Comments Never 0 [...] Don't know 01/28/2024 1: 40 PM EDT documented as of this encounter Plan of Treatment Upcoming Encounters Date Type Department Care Team (Late st Contact Info) Description 07/30/2024 8:30 AM EDT Office Visit [facility] MED & PEDS [address] [place] [address] Conor Mathew MD [address] [place] [address] documented as of this encounter Visit Diagnoses Not on filedocumented in this encounter Additional Health Concerns Assessment Noted Time PHQ-9 Depression Total Score: 4 04/07/20 1:10 PM EST documented as of this encounter Care Teams Form Worker Relationship Specialty Start Date End Date Conor Mathew MD [address] [place] [address] PCP - General Internal Medicine 04/07/24 documented as of this encounter
--- OUTSIDE RECORDS SUMMARY | 2024-07-02 09:50 | XMS_ITS | Encounter Summary ---
Author Organization [employer] Address [address] [place] [address] [address] [place] [address] Care Team Providers Care Dinkey Engineer Name Role Phone Conor Mathew MD Primary Care Prov ider Reason for Visit * Reason Comments Pre-visit Planning SDOH negative, Tobac co screening negative. Encounter Details Date Type Department Care Team ([facility] Contact Info) Description 06/16/2024 Patient Outreach [facility] & PEDS [address] [place], [place] [phone] Conor Mathew MD [address] [place] [address] Pre-visit Planning (SDOH negative, Tobacco screening negative. ) Social History Tobacco Use Types Packs/Day Years [...] PM EDT documented as of this encounter Progress Notes * Janett De Leon - 06/16/2024 3:51 PM EST CC Janett Andrea placed successful outbound call to patient for pre-visit planning. Patient name and confirmed. Patient confirms appt date and time, and has transportation arrangements. Biggest concern for appointment at this time is no concerns. Appropriate screenings completed in anticipation ofappointment. documented in this encounter Plan of Treatment Upcoming Encounters Date Type Department Care Team ([facility] st Contact Info) Description 07/30/2024 8:30 AM EDT Office Visit [facility] MED & PEDS [address] [place] [address] Conor Mathew MD [address] [place] [address] documented as of this encounter Visit Diagnoses Not on filedocumented in this encounter Additional Health Concerns Assessment Noted Time PHQ-9 Depression Total Score: 4 04/07/20 24 1:10 PM EST documented as of this encounter Care Teams Dinkey Engineer Relationship Specialty Start Date End Date Conor Mathew MD [address] [place] [address] PCP - General Internal Medicine 04/07/24 documented as of this encounter
--- OUTSIDE RECORDS SUMMARY | 2024-07-02 09:50 | XMS_ITS | Encounter Summary ---
Author Organization [employer] [facility] Address [address] [place] [id number] Care Team Providers Care Special Education Professor Name Role Phone Conor Mathew MD Primary Care Prov ider Reason for Referral * Imaging (Routine) - Authorized Specialty Diagnoses / Procedures Referred By Contac t Referred To Contact Diagnoses Other chest pain Procedures Stress test with myocardial perfusion Conor Mathew MD [address] [place] [address] Phone: tel: fax: [address] Phone: tel: fax: Referral ID Status Reason Start Date Expiration Date V isits Requested Visits Authorized [id number] Authorized 06/23/2024 06/23/2025 3 3 Reason for Visit * Reason Comments Annual Exam Encounter Details Date Type Department Care Team (Late st Contact Info) Description 06/23/2024 2:30 PM EST Office Visit [facility] [address], [place] [phone] Conor Mathew MD [address], [place] [phone] Obstructive sleep apnea syndrome (Primary Dx); Dietary counseling; Exercise counseling; Prostate cancer screening; Erectile dysfunction, unspecified erectile dysfunction type; Other chest pain Social History Tobacco Use Types Packs/Day Years [...] PM EDT documented as of this encounter Last Filed Vital Signs Vital Sign Reading Time Taken Comments Blood Pressure 118/70 06/23/2024 2:42 PM EST Pulse 58 06/23/2024 2:42 PM EST Temperature 36.2 ??C (97.2 ??F) 06/23/2024 2:42 PM ES T Respiratory Rate 16 06/23/2024 2:42 PM EST Oxygen Saturation 100% 06/23/2024 2:42 PM EST Inhaled Oxygen Concentration - - Weight 85.6 kg (188 lb 12.8 oz) 06/23/2024 2:42 PM EST Height 177.8 cm (5' 10 ) 06/23/2024 2:42 PM EST Body Mass Index 27.09 06/23/2024 2:42 PM EST documented in this encounter Progress Notes * Conor Coyle MD - 06/23/2024 2:30 PM EST Subjective Patient ID: Andrea Agustin is a 53 y.o. adult who presents for Annual Exam. Erectile Dysfunction This is a chronic problem. Pertinent negatives include no chills, congestion, numbness or vomiting. Review of Systems Constitutional: Negative for chills. HENT: Negative for congestion. Gastrointestinal: Negative for vomiting. Neurological: Negative for numbness. Objective Physical Exam Constitutional: Appearance: Normal appearance. HENT: Right Ear: Tympanic membrane, ear canal and external ear normal. There is no impacted cerumen. Left Ear: Tympanic membrane, ear canal and external ear normal. There is no impacted cerumen. Cardiovascular: Rate and Rhythm: Normal rate and regular rhythm. Heart sounds: No murmur heard. Pulmonary: Effort: Pulmonary effort is normal. No respiratory distress. Breath sounds: No stridor. No wheezing or rhonchi. Abdominal: General: Abdomen is flat. There is no distension. Palpations: There is no mass. Tenderness: There is no abdominal tenderness. There is no guarding or rebound. Hernia: No hernia is present. Musculoskeletal: General: No swelling or tenderness. Normal range of motion. Cervical back: Normal range of motion. No rigidity or tenderness. Lymphadenopathy: Cervical: No cervical adenopathy. Skin: General: Skin is warm. Coloration: Skin is not jaundiced or pale. Neurological: General: No focal deficit present. Mental Status: He is alert and oriented to person, place, and time. Psychiatric: Mood and Affect: Mood normal. Behavior: Behavior normal. Assessment/Plan Problem List Items Addressed This Visit Erectile dysfunction On cialis, no changes will be made Obstructive sleep apnea syndrome - Primary Patient diagnosed 3 years ago, using sleep apnea machine Relevant Orders CBC auto differential Comprehensive Metabolic Panel Hemoglobin A1c Lipid Panel, Standard TSH W/Reflex to FT4 Other chest pain Complains of sharp chest pain episodes, that don't radiate, with associated shortness of breath, his mother due to a MA at 58 yrs, will order a stress test Relevant Orders Stress test with myocardial perfusion Other Visit Diagnoses Dietary counseling Exercise counseling Prostate cancer screening Relevant Orders PSA, Total With Reflex to PSA, Free documented in this encounter Miscellaneous Notes * Assessment & Plan Note - Conor Coyle MD - 06/23/2024 4:22 PM ESTAssociated Problem(s): Other chest pain Complains of sharp chest pain episodes, that don't radiate, with associated shortness of breath, his mother due to a MA at 60 yrs, will order a stress test * Assessment & Plan Note - Conor Coyle MD - 06/23/2024 4:20 PM ESTAssociated Problem(s): Erectile dysfunction On cialis, no changes will be made * Assessment & Plan Note - Conor Coyle MD - 06/23/2024 3:15 PM ESTAssociated Problem(s): Obstructive sleep apnea syndrome Patient diagnosed 3 years ago, using sleep apnea machine documented in this encounter Plan of Treatment Upcoming Encounters Date Type Department Care Team (Late st Contact Info) Description 07/30/2024 8:30 AM EDT Office Visit [facility] MED & PEDS [address] [place] [address] Conor Mathew MD [address] [place] [phone] Scheduled Orders Name Type Priority Associated Diagnoses Orde r Schedule CBC auto differential Lab Routine Obstructive sleep apnea syndrome Expected: 06/23/2024 (Approximate), Expires: 06/23/2025 Comprehensive Metabolic Panel Lab Routine Obstructive sleep apnea syndrome Expected: 06/23/2024 (Approximate), Expires: 06/23/2025 Hemoglobin A1c Lab Routine Obstructive sleep apnea syndrome Expected: 06/23/2024 (Approximate), Expires: 06/23/2025 Lipid Panel, Standard Lab Routine Obstructive sleep apnea syndrome Expected: 06/23/2024 (Approximate), Expires: 06/23/2025 TSH W/Reflex to FT4 Lab Routine Obstructive sleep apnea syndrome Expected: 06/23/2024 (Approximate), Expires: 06/23/2025 PSA, Total With Reflex to PSA, Free Lab Routine Prostate cancer screening Expected: 06/23/2024 (Approximate), Expires: 06/23/2025 documented as of this encounter Visit Diagnoses Diagnosis Obstructive sleep apnea syndrome- Primary Obstructive sleep apnea (adult) (pediatric) Dietary counseling Dietary surveillance and counseling Exercise counseling Prostate cancer screening Special screening for malignant neoplasm of prostate Erectile dysfunction, unspecified erectile dysfunction type Other chest pain documented in this encounter Additional Health Concerns Assessment Noted Time PHQ-9 Depression Total Score: 4 04/07/20 24 1:10 PM EST documented as of this encounter Care Teams Special Education Professor Relationship Specialty Start Date End Date Conor Mathew MD [address] [place] [phone] PCP - General Internal Medicine 04/07/24 documented as of this encounter
--- OUTSIDE RECORDS SUMMARY | 2024-07-02 09:50 | XMS_ITS | Clinical Summary ---
Author Organization [employer] Address [address] [place] [address] [address] [place] [address] Care Team Providers Care Loan Funder Name Role Phone Conor Mathew MD Primary Care Prov ider Allergies No known active allergies Medications tadalafil (Cialis) 10 MG tablet Take 1 tablet (10 mg) by mouth if needed each day for erectile dysfunction. 30 tablet 05/29/2024 Active Active Problems Problem Noted Date Diagnosed Date Obstructive sleep apnea syndrome 06/23/2024 Assessment & Plan (06/23/2024 3:15 PM EST): Patient diagnosed 3 years ago, using sleep apnea machine Other chest pain 06/23/2024 Assessment & Plan (06/23/2024 4:22 PM EST): Complains of sharp chest pain episodes, that don't radiate, with associated shortness of breath, his mother due to a AL at 60 yrs, will order a stress test Encounter for medical examination to establish c [...] reccomendations Erectile dysfunction 05/29/2024 Assessment & Plan (06/23/2024 4:20 PM EST): On cialis, no changes will be made Assessment & Plan (05/29/2024 12:35 AM EST): Patient denied morning erections, will prescribe cialis, follow up as needed Encounters Date Type Department Care Team Description 06/23/2024 2:30 PM EST Office Visit [facility] MED & PEDS [address] [place] [address] Conor Mathew MD Obstructive sleep apnea syndrome (Primary Dx); Dietary counseling; Exercise counseling; Prostate cancer screening; Erectile dysfunction, unspecified erectile dysfunction type; Other chest pain 06/23/2024 Travel 06/16/2024 Patient Outreach [facility] MED & PEDS [address] [place] [address] Conor Mathew MD Pre-visit Planning (SDOH negative, Tobacco screening negative. ) 04/07/2024 1:45 PM EST Telemedicine [facility] MED & PEDS [address] [place] [address] Conor Mathew MD Encounter for medical examination to establish care (Primary Dx); Screening for colon cancer; Erectile dysfunction, unspecified erectile dysfunction type 04/07/2024 Travel from Last 3 Months Family History Medical [...] Don't know 01/28/2024 1: 40 PM EDT Last Filed Vital Signs Vital Sign Reading [...] Mass Index 27.09 06/23/2024 2:42 PM EST Plan of Treatment Upcoming Encounters Date Type Department Care Team (Late st Contact Info) Description 07/30/2024 8:30 AM EDT Office Visit [facility] MED & PEDS [address] [place], [place] [phone] Conor Mathew MD [address] [place], [place] [phone] Health Maintenance Due Date Last Done Comments CT Colonography 1968 Colonoscopy 1968 Colorectal Cancer Screening 1968 FIT DNA/Cologuard 1968 FIT 1968 FOBT 1968 HIV Screening 1968 Lipid Panel 1968 Sigmoidoscopy 1968 Alcohol/Substance Use Screening 1980 Hepatitis C Screening 1986 DTaP/Tdap/Td Vaccines (1 - Tdap) 10/07/1987 Hepatitis B Vaccines (1 of 3 - 19+ 3-dose series) 10/07/1987 Pneumococcal Vaccine: 50+ Years (1 of 1 - PCV) 2018 Zoster Vaccines (1 of 2) 2018 COVID-19 Vaccine ( - 2023-2 5 season) 2024 Influenza Vaccine (#1) 2024 Depression Screening 04/07/2025 04/07/2024, 04/07/2024 SDOH Screening 06/16/2025 06/16/2024 Tobacco Screening 06/23/2025 06/23/2024 RSV Patients and Patients Aged 60 years [...] patient's age to complete this topic Insurance [employer] Care Teams Loan Funder Relationship Specialty Start Date End Date Conor Mathew MD [address] [place] [id number] PCP - General Internal Medicine 04/07/24
[2024-07-02 14:21] LABS: MANUAL DIFF FLAG NO
[2024-07-02 14:25] LABS: Basophils Percent Auto 0.7 % (0-2); Eosinophils Absolute Auto 0.1 X10*3/uL (0.0-0.4); Eosinophils Percent Auto 1.3 % (0-4); Hematocrit 39.2 % (42.0-52.0); Hemoglobin 12.8 g/dl (14.0-18.0); Imm Gran Abs Auto 0.01 X10*3/uL (0.00-0.03); Imm Gran Pct Auto 0.2 % (0.0-0.4); Lymphocytes Absolute Auto 2.4 X10*3/uL (1.2-4.9); Lymphocytes Percent Auto 54.4 % (20-40); Mean Corpuscular HGB Conc 32.7 g/dl (31.0-36.0); Mean Corpuscular Hemoglobin 32.2 pg (27.0-33.0); Mean Corpuscular Volume 98.5 fL (80.0-98.0); Monocytes Absolute Auto 0.3 X10*3/uL (0.1-1.2); Monocytes Percent Auto 6.7 % (2-11); Neutrophils Absolute Auto 1.6 x10*3/uL (2.0-8.3); Neutrophils Percent Auto 36.7 % (45-73); Platelet Count 255 X10*3/uL (160-400); Red Blood Count 3.98 X10*6/uL (4.60-5.80); Red Cell Distribution Width 12.8 % (11.0-16.0); White Blood Count 4.5 X10*3/uL (4.8-10.8)
[2024-07-02 14:32] LABS: Estimated Average Glucose 108 mg/dL; Hemoglobin A1C 123.1322 umol/L; Hemoglobin A1c % 5.4 % (<6.0); Total Hemoglobin (HGBA1C) 3419.9488 umol/L
[2024-07-02 14:52] LABS: Alanine Aminotransferase 26 U/L (0-40); Albumin Level 4.2 g/dL (3.5-5.0); Alkaline Phosphatase 72 U/L (39-117); Anion Gap 10 (12-20); Aspartate Amino Transferase 30 U/L (5-37); Bilirubin Total 0.4 mg/dL (0.0-1.0); Blood Urea Nitrogen 11 mg/dL (9-16); Calcium 9.1 mg/dL (8.4-10.2); Carbon Dioxide 27 mmol/L (22-29); Chloride 109 mmol/L (96-108); Cholesterol 157 mg/dL (<200); Estimated Glomerular Filt Rate > 60; Glucose Random 78 mg/dL (60-115); HDL Cholesterol 41 mg/dL (>40); LDL Cholesterol Calculated 104 mg/dL (<100); Potassium 3.8 mmol/L (3.3-5.1); Sodium 142 mmol/L (135-145); Total Protein 7.3 g/dL (6.5-8.0); Triglycerides 64 mg/dL (<150)
[2024-07-02 14:55] LABS: PSA,Total (Free>4and<10) 0.82 ng/mL (0.00-4.00)
[2024-07-02 14:59] LABS: TSH reflex Free T4 2.22 uIU/mL (0.32-4.0)
== END 2024-07-02 09:24 | disposition home or self-care (01) ==
LOC: HO.CHCLDS 09:23
PROVIDERS: Visit Provider Internal Medicine
DX: G47.33 Obstructive sleep apnea (adult) (pediatric) (principal); Z13.220 Encounter for screening for lipoid disorders; Z13.1 Encounter for screening for diabetes mellitus; Z13.29 Encounter for screening for other suspected endocrine disorder; Z12.5 Encounter for screening for malignant neoplasm of prostate
CPT/HCPCS: 36415; 80053; 80061; 83036; 84153; 84443; 85025

== ENCOUNTER 2024-07-30 09:26 | Outpatient (REF) | payer OTHER, SELFPAY ==
[2024-07-30 14:22] LABS: MANUAL DIFF FLAG NO
[2024-07-30 14:33] LABS: Basophils Percent Auto 0.7 % (0-2); Eosinophils Absolute Auto 0.1 X10*3/uL (0.0-0.4); Eosinophils Percent Auto 1.8 % (0-4); Hematocrit 40.6 % (42.0-52.0); Imm Gran Abs Auto 0.01 X10*3/uL (0.00-0.03); Imm Gran Pct Auto 0.2 % (0.0-0.4); Lymphocytes Absolute Auto 2.1 X10*3/uL (1.2-4.9); Mean Corpuscular Hemoglobin 31.9 pg (27.0-33.0); Mean Corpuscular Volume 99.8 fL (80.0-98.0); Mean Platelet Volume 10.8 fL (9.4-12.4); Monocytes Absolute Auto 0.4 X10*3/uL (0.1-1.2); Monocytes Percent Auto 8.5 % (2-11); Neutrophils Absolute Auto 1.9 x10*3/uL (2.0-8.3); Neutrophils Percent Auto 41.8 % (45-73); Platelet Count 251 X10*3/uL (160-400); Red Blood Count 4.07 X10*6/uL (4.60-5.80); Red Cell Distribution Width 13.1 % (11.0-16.0); White Blood Count 4.5 X10*3/uL (4.8-10.8)
[2024-07-31 08:01] LABS: HIV AB/AG Nonreactive (Nonreactive); HIV Num 1 0.09 S/CO (0.00-0.99); ~HepC Num1 0.13 S/CO (0.00-0.79); ~Hepatitis C Antibody Nonreactive (Nonreactive)
[2024-08-08 14:27] LABS: Testosterone, Free 35.6 pg/mL (35.0-155.0); Testosterone, Total 209 ng/dL (250-1100)
== END 2024-07-30 09:27 | disposition home or self-care (01) ==
LOC: HO.CHCLDS 09:26
PROVIDERS: Visit Provider Internal Medicine
DX: N52.9 Male erectile dysfunction, unspecified (principal)
CPT/HCPCS: 36415; 84402; 84403; 85025; 86803; 87389

== ENCOUNTER → 2024-08-25 07:37 | Outpatient (REF) | payer OTHER, SELFPAY ==
--- NOTE | ~2024-08-25 | NM_ITS ---
EXERCISE MYOCARDIAL PERFUSION STUDY INDICATION: Chest pain to evaluate for myocardial ischemia TECHNIQUE: The patient was brought in for an exercise perfusion study on 08/25/2024. Patient performed exercise as per Norbert protocol and was injected 30 mCi of sestamibi once target heart rate was achieved. Images were obtained using the SPECT gamma camera interlaced with the gating device. Images were obtained in [supine position. Resting perfusion study was performed on 08/27/2024. Patient was administered 30 mCi of sestamibi intravenously at rest. Images were then obtained in supine position. Images obtained without without CT attenuation. Total DLP 121 mGy-cm. Images were processed with the software and compared side to side in short axis, horizontal long axis and vertical long axis views. FINDINGS: Raw images were reviewed The stress perfusion study showed nonattenuated images show overall normal uptake of radiotracer in all segments of the LV myocardium. Attenuated corrected images show minimal thinning of the LV myocardium.. The gated study shows normal LV systolic function with calculated LVEF of 56%. LV cavity is minimally dilated in size. The gated study shows normal systolic wall thickening and contraction of segments. Resting study shows no change in perfusion pattern compared to stress perfusion study. Gating at rest reveals normal systolic wall motion with ejection fraction at greater than 55%. The findings are consistent with normal myocardial perfusion. NM/NM cardiolite stress test IMPRESSION: 1. Myocardial perfusion imaging study shows normal myocardial perfusion. 2. Gated LVEF is 56. 3. Transient ischemic dilatation not present. EKG revealed no ischemia. Electronically signed by: Ramu Green MD 08/27/2024 02:07 PM EDT
--- NOTE | 2024-08-25 07:40 | CA_ITS ---
Acquisition Time: 2024-08-25 08:02:58 Total Exercise Time: 00:08:15 Test Indications: CP Medications: SEE EMAR Protocol: [place] Max HR: 150 BPM 90% of Pred: 165 BPM Max BP: 170/70 mmHG Max Work Load: 10.1 METS Exercise stress test with exercise 8 mins 15 secs of [place] Protocol, achieving 90% MPHR, with moderate SOB and dizziness, no chest pain, with isolated PACs, with normotensive response to exercise. Without EKG changes meeting criteria for ischemia. In recoovery, breathing returned to baseline and dizziness resolved. Nuclear images pending. Test reviewed with Dr. Green. Referred By: Conor Coyle Electronically Signed By: Leonard Carvalho
--- OUTSIDE RECORDS SUMMARY | 2024-08-25 07:40 | XMS_ITS | Clinical Summary ---
Author Organization [email or web address] Address [address] [place] [address] [address] [place] [address] Care Team Providers Care Linux System Admin Name Role Phone Conor Mathew MD Primary [...] of breath, his mother due to a NE at 58 yrs, will order a stress [...] reccomendations Erectile dysfunction 05/29/2024 Assessment & Plan (07/30/2024 11:25 AM EDT): Wiill order testostrone blood work, follow up in 4 months Assessment & Plan (06/23/2024 4:20 PM EST): On cialis, no changes will be made Assessment & Plan (05/29/2024 12:35 AM EST): Patient denied morning erections, will prescribe cialis, follow up as needed Encounters Date Type Department Care Team Description 08/14/2024 Telephone [facility] [address] [place] [address] Conor Mathew MD Results 08/14/2024 Telephone [facility] [address] [place] [address] Conor Mathew MD Results 08/11/2024 Telephone [facility] [address] [place] [address] Conor Mathew MD Results 08/11/2024 Orders Only [facility] [address] [place] [address] Conor Mathew MD Erectile dysfunction, unspecified erectile dysfunction type (Primary Dx) 07/30/2024 8:30 AM EDT Office Visit [facility] [address] [place] [address] Conor Mathew MD Erectile dysfunction, unspecified erectile dysfunction type (Primary Dx) 07/30/2024 Travel 06/23/2024 2:30 PM EST Office Visit [facility] [address] [place] [address] Conor Mathew MD Obstructive sleep apnea syndrome (Primary Dx); Dietary counseling; Exercise counseling; Prostate cancer screening; Erectile dysfunction, unspecified erectile dysfunction type; Other chest pain 06/23/2024 Travel 06/16/2024 Patient Outreach [facility] [address] [place] [address] Conor Mathew MD Pre-visit Planning (SDOH negative, Tobacco screening negative. ) from Last 3 Months Family History Medical [...] Answer Date Recorded Patient Health Questionnaire-9 Score 0 07/30/2024 Patient Health Questionnaire-9 Score 0 07/30/2024 Last PHQ-9: Questionnaire Data Not on file 0 07/30/2024 Housing Stability Answer Date Recorded What is [...] Answer Date Recorded Patient Health Questionnaire-2 Score 0 07/30/2024 Internet Access Answer Date Recorded Internet Access [...] Sign Reading Time Taken Comments Blood Pressure 122/70 07/30/2024 8:47 AM EDT Pulse 66 07/30/2024 8:47 AM EDT Temperature 36.1 ??C (97 ??F) 07/30/2024 8:47 AM EDT Respiratory Rate 20 07/30/2024 8:47 AM EDT Oxygen Saturation 99% 07/30/2024 8:47 AM EDT Inhaled Oxygen Concentration - - Weight 85.3 kg (188 lb) 07/30/2024 8:47 AM EDT Height 177.8 cm (5' 10 ) 07/30/2024 8:47 AM EDT Body Mass Index 26.98 07/30/2024 8:47 AM EDT Plan of Treatment Health Maintenance Due Date Last Done Comments CT Colonography 1968 Colonoscopy 1968 Colorectal Cancer Screening 1968 FIT DNA/Cologuard 1968 FIT 1968 FOBT 1968 Sigmoidoscopy 1968 DTaP/Tdap/Td Vaccines (1 - Tdap) 10/07/1987 Hepatitis B Vaccines (1 of 3 - 19+ 3-dose series) 10/07/1987 Pneumococcal Vaccine: 50+ Years (1 of 1 - PCV) 2018 Zoster Vaccines (1 of 2) 2018 COVID-19 Vaccine ( - 2023-2 5 season) 2024 Influenza Vaccine (#1) 2024 Tobacco Screening 06/23/2025 06/23/2024 Alcohol/Substance Use Screening 07/30/2025 07/30/2024 Depression Screening 07/30/2025 07/30/2024, 07/30/2024 SDOH Screening 07/30/2025 07/30/2024 Lipid Panel 07/02/2029 07/02/2024 RSV Patients and Patients Aged 60 years or older (1 - 1-dose 75+ series) 10/07/2043 HIV Screening Completed 07/30/2024 Hepatitis C Screening Completed 07/30/2024 HIB Vaccines Aged Out No longer eligi [...] on patient's age to complete this topic Procedures Procedure Name Priority Date/Time Associated Diagnosis Comments TESTOSTERONE, FREE (DIALYSIS) AND TOTAL,MS Routine 07/30/2024 9:30 AM EDT Erectile dysfunction, unspecified erectile dysfunction type HEPATITIS C AB W/REFL TO HCV RNA, QN, PCR Routine 07/30/2024 9:30 AM EDT Erectile dysfunction, unspecified erectile dysfunction type HIV 1/2 ANTIGEN/ANTIBODY, FOURTH GENERATION W/RFL Routine 07/30/2024 9:30 AM EDT Erectile dysfunction, unspecified erectile dysfunction type CBC WITH AUTO DIFFERENTIAL Routine 07/30/2024 9:30 AM EDT Erectile dysfunction, unspecified erectile dysfunction type PSA, TOTAL WITH REFLEX TO PSA, FREE Routine 07/02/2024 9:35 AM EST Prostate cancer screening TSH W/REFLEX TO FT4 Routine 07/02/2024 9 :35 AM EST Obstructive sleep apnea syndrome LIPID PANEL, STANDARD Routine 07/02/2024 9:35 AM EST Obstructive sleep apnea syndrome HEMOGLOBIN A1C Routine 07/02/2024 9:35 AM EST Obstructive sleep apnea syndrome COMPREHENSIVE METABOLIC PANEL Routine 07/02/2024 9:35 AM EST Obstructive sleep apnea syndrome CBC WITH AUTO DIFFERENTIAL Routine 07/02/2024 9:35 AM EST Obstructive sleep apnea syndrome from Last 3 Months Results * (ABNORMAL) CBC auto differential (07/30/2024 9:30 AM EDT) Only the most recent of2 resultswithin the time period is included. White Blood Count 4.5(L) 4.8 - 10.8 X10*3/uL [facility] Red Blood Count 4.07(L) 4.60 - 5.80 X10*6/uL [facility] Hemoglobin 13.0(L) 14.0 - 18.0 g/dl [facility] Hematocrit 40.6(L) 42.0 - 52.0 % [facility] Mean Corpuscular Volume 99.8(H) 80.0 - 98.0 fL [facility] Mean Corpuscular Hemoglobin 31.9 27.0 - 33.0 pg [facility] Mean Corpuscular HGB Conc 32.0 31.0 - 36.0 g/dl [facility] Red Cell Distribution Width 13.1 11.0 - 16.0 % [facility] Platelet Count 251 160 - 400 X10*3/uL [facility] Mean Platelet Volume 10.8 9.4 - 12.4 fL [facility] Neutrophils Percent Auto 41.8(L) 45 - 73 % [facility] Imm Gran Pct Auto 0.2 0.0 - 0.4 % [facility] Lymphocytes Percent Auto 47.0(H) 20 - 40 % [facility] Monocytes Percent Auto 8.5 2 - 11 % [facility] Eosinophils Percent Auto 1.8 0 - 4 % [facility] Basophils Percent Auto 0.7 0 - 2 % [facility] NRBC Pct Auto 0.0 0.0 - 0.2 /100WBC [facility] Neutrophils Absolute Auto 1.9(L) 2.0 - 8.3 x10*3/uL [facility] Imm Gran Abs Auto 0.01 0.00 - 0.03 X10*3/uL [facility] Lymphocytes Absolute Auto 2.1 1.2 - 4.9 X10*3/uL [facility] Monocytes Absolute Auto 0.4 0.1 - 1.2 X10*3/uL [facility] Eosinophils Absolute Auto 0.1 0.0 - 0.4 X10*3/uL [facility] Basophils Absolute Auto 0.0 0.0 - 0.2 X10*3/uL [facility] NRBC Abs Auto 0.000 0.0 - 0.012 X10*3/uL [facility] Blood Venous blood specimen / Unknown 07/30/2024 9:30 AM EDT 07/30/2024 2:17 PM EDT Conor Coyle MD LAB BLOOD ORDERABL ES Final Result Performing Organization Address City/[facility]/ZIP Co de Phone Number [facility] [address] [place] [phone] * Hepatitis C Antibody with Reflex to HCV, RNA, Quantitative, Real-Time PCR (07/30/2024 9:30 AM EDT) Hepatitis C Antibody Nonreactive Nonreactive [facility] Comment:Antibodies to HCV no t detected; does not exclude early acuteHCV infection. Blood Venous blood specimen / Unknown 07/30/2024 9:30 AM EDT 07/30/2024 2:17 PM EDT us Conor Coyle MD LAB BLOOD ORDERABL ES Final Result Performing Organization Address [facility]/ZIP Co de Phone Number [facility] [address] [place] [phone] * HIV-1/2 Antigen and Antibodies, Fourth Generation, with Reflexes (07/30/2024 9:30 AM EDT) HIV AB/AG Nonreactive Nonreactive [facility] Comment:HIV-1 p24 Ag and/or HIV-1/HIV-2 Ab not detected.A test result that is nonreactive does not exclude thepossibility of exposure to or infection with HIV-1 and/orHIV-2. Nonreactive results in this assay for individualswith prior exposure to HIV-1 and/or HIV-2 may be due toantigen and antibody levels that are below the limit ofdetection of this assay.The [employer] HIV Ag/Ab Combo assay result andsupplemental assay results should be interpreted inconjunction with the patient's clinical presentation,history and other laboratory results. If the results areinconsistent with clinical evidence, additional testing issuggested to confirm the result. Blood Venous blood specimen / Unknown 07/30/2024 9:30 AM EDT 07/30/2024 2:17 PM EDT us Conor Coyle MD LAB BLOOD ORDERABL ES Final Result [facility] [address] [place] [phone] * (ABNORMAL) Testosterone, Free (Dialysis) And Total, MS (07/30/2024 9:30 AM EDT) Testosterone, Total 209(A) 250 - 1100 ng/dL [facility] Comment:Men with clinically significant hypogonadal symptoms and testosterone valuesrepeatedly in the range of the 200-300 ng/dL or less, may benefit fromtestosterone treatment after adequate risk and benefits counseling.For additional information, please refer tohttps://education.Eyelation/faq/YBL401(This link is being provided for informational/educational purposes only.)(Note)This test was developed and its analytical performancecharacteristics have been determined by [employer]. It hasnot been cleared or approved by the FDA. This assay hasbeen validated pursuant to the CLIA regulations and isused for clinical purposes. Testosterone, Free 35.6 35.0 - 155.0 pg/mL [facility] Comment:(Note)This test was developed and its analytical performancecharacteristics have been determined by [employer]. It hasnot been cleared or approved by the FDA. This assay hasbeen validated pursuant to the CLIA regulations and isused for clinical purposes.[facility] [id number] [address],[address] [place] [address] [phone] Edgar Chau MD, PhDTHIS TEST WAS PERFORMED AT:[id number] [place] [place] [phone] CHAU MD,PHD Blood Venous blood specimen / Unknown 07/30/2024 9:30 AM EDT 07/30/2024 2:17 PM EDT Conor Coyle MD LAB BLOOD ORDERABL ES Final Result Performing Organization Address [facility] Co de Phone Number [facility] [address] [place] [phone] * TSH W/Reflex to FT4 (07/02/2024 9:35 AM EST) TSH reflex Free T4 2.22 0.32 - 4.0 uIU/mL [facility] Blood Venous blood specimen / Unknown 07/02/2024 9:35 AM EST 07/02/2024 2:16 PM EST Conor Coyle MD LAB BLOOD ORDERABL ES Final Result Performing Organization Address [facility] de Phone Number [facility] [address] [place] [phone] * PSA, Total With Reflex to PSA, Free (07/02/2024 9:35 AM EST) PSA,Total (Free>4and<10) 0.82 0.00 - 4.00 ng/mL [facility] Comment:A Free PSA was not p erformed: The percentage of Free PSA can be used to enhance the differentiation of prostate cancer from benign prostatic disease in subjects whose PSA levels are between 4.0 and 10.0 ng/mL. For subjects whose PSA levels are below 4.0 or above 10.0 ng/mL, the risk of prostate cancer is determined on the basis of the PSA alone. Therefore the % Free PSA is recommended only for those subjects whose PSA levels are between 4.0 and 10.0 ng/mL.PSA methodology: Nunn Alinity i ChemiluminescentMicroparticle Immunoassay (CMIA) 07/02/2024 9:35 AM EST 07/02/2024 2:16 PM EST Conor Coyle MD LAB BLOOD ORDERABL ES Final Result Performing Organization Address [facility] Co de Phone Number [facility] [address] [place] [phone] * Hemoglobin A1c (07/02/2024 9:35 AM EST) Hemoglobin A1c 5.4 <6.0 % [facility] Comment:Hemoglobin A1C Refer ence Range Adults: 4.8 - 6.0 % Non diabetic: < 6.0 % Goal: < 7.0 %Additional Action Suggested: > 8.0 %Note: Hemoglobin A1c results are invalid for patients with abnormal amounts of HbF. Blood transfusions may impact the HbA1c concentration in the patient sample. Estimated Average Glucose 108 mg/dL [facility] Comment:eAG = Estimated ave rage glucose which is %A1C expressed asaverage glucose, using the formula of the E2Y-NxjawfgJkfzuzj Glucose study (ADAG), Diabetes Care, Vol.31,#8,Dec. 2007 Blood Venous blood specimen / Unknown 07/02/2024 9:35 AM EST 07/02/2024 2:16 PM EST Conor Coyle MD LAB BLOOD ORDERABL ES Final Result Performing Organization Address [facility] Co de Phone Number [facility] [address] [place] [phone] * (ABNORMAL) Lipid Panel, Standard (07/02/2024 9:35 AM EST) Triglycerides 64 <150 mg/dL [facility] Comment:Desirable Triglyceri de: less than 150 mg/dLBorderline High Triglyceride 150-199 mg/dLHigh Triglyceride: 200-499 mg/dLVery High Triglyceride: greater than or equal to 5OO mg/dL Cholesterol 157 <200 mg/dL [facility] Comment:Desirable Cholestero l: less than 200 mg/dLBorderline High Cholesterol: 200-239 mg/dLHigh Cholesterol: greater than 239 mg/dL LDL Cholesterol Calculated 104(H) <100 mg/dL [facility] Comment:Desirable LDL: less than 100 mg/dLNear Optimal/Above Optimal LDL: 110- 129 mg/dLBorderline High LDL: 130-159 mg/dLHigh LDL: 160-189 mg/dLVery High LDL: greater than or equal to 190 mg/dL HDL Cholesterol 41 >40 mg/dL [facility] Comment:Desirable HDL: great er than 40 mg/dL Note: This HDL assay may give artificially low results in patients with liver disease. Blood Venous blood specimen / Unknown 07/02/2024 9:35 AM EST 07/02/2024 2:16 PM EST us Conor Coyle MD LAB BLOOD ORDERABL ES Final Result [facility] [address] [place] [phone] * (ABNORMAL) Comprehensive Metabolic Panel (07/02/2024 9:35 AM EST) Sodium 142 135 - 145 mmol/L [facility] Potassium 3.8 3.3 - 5.1 mmol/L [facility] Chloride 109(H) 96 - 108 mmol/L [facility] Carbon Dioxide 27 22 - 29 mmol/L [facility] Anion Gap 10(L) 12 - 20 [facility] Urea Nitrogen (BUN) 11 9 - 16 mg/dL [facility] Creatinine, Serum 0.80 0.5 - 1.4 mg/dL [facility] Estimated Glomerular Filt Rate >60 [facility] Comment:Chronic Kidney Disea se: Estimated GFR < 60 mL/min/[id number] Kidney Disease: Estimated GFR < 15 mL/min/1.73m2 Glucose 78 60 - 115 mg/dL [facility] Calcium 9.1 8.4 - 10.2 mg/dL [facility] Bilirubin, Total 0.4 0.0 - 1.0 mg/dL [facility] Aspartate Amino Transferase 30 5 - 37 U/L [facility] Alanine Aminotransferase 26 0 - 40 U/L [facility] Total Protein 7.3 6.5 - 8.0 g/dL [facility] Albumin Level 4.2 3.5 - 5.0 g/dL [facility] Alkaline Phosphatase 72 39 - 117 U/L [facility] Blood Venous blood specimen / Unknown 07/02/2024 9:35 AM EST 07/02/2024 2:16 PM EST Conor Coyle MD LAB BLOOD ORDERABL ES Final Result [facility] [address] [place] [phone] from Last 3 Months Insurance [employer] Care Teams Linux System Admin Relationship Specialty Start Date End Date Conor Mathew MD [address] [place] [phone] PCP - General Internal Medicine 04/07/24
== END ==
LOC: HO.CARD 07:37
PROVIDERS: Visit Provider Internal Medicine
DX: R07.89 Other chest pain (principal)
CPT/HCPCS: 78452; 93017; A9500

== ENCOUNTER → 2024-08-25 07:40 | Outpatient (BNV) | payer OTHER, SELFPAY | DX: R07.9 Chest pain, unspecified (principal) | CPT/HCPCS: 78452; 93016; 93018 ==

== ENCOUNTER 2024-09-03 08:36 | Outpatient (REF) | payer OTHER, SELFPAY ==
--- OUTSIDE RECORDS SUMMARY | 2024-09-03 09:05 | XMS_ITS | Clinical Summary ---
Author Organization [employer] Address [address] [place] [address] [address] [place] [address] Care Team Providers Care Cartographic Engineer Name Role Phone Conor [place]w MD [...] Type Department Care Team Description 08/14/2024 Telephone [facility] [address] [place] [address] Conor [place]w MD Results 08/14/2024 Telephone [facility] [address] [place] [address] Conor [place]w MD Results 08/11/2024 Telephone [facility] [address] [place] [address] Conor [place]w MD Results 08/11/2024 Orders Only [facility] [address] [place] [address] Conor [place]w MD Erectile dysfunction, unspecified erectile dysfunction type (Primary Dx) 07/30/2024 8:30 AM EDT Office Visit [facility] [address] [place] [address] Conor [place]w MD Erectile dysfunction, unspecified erectile dysfunction type (Primary Dx) 07/30/2024 Travel 06/23/2024 2:30 PM EST Office Visit [facility] [address] [place] [address] Conor [place]w MD Obstructive sleep apnea syndrome (Primary Dx); Dietary counseling; Exercise counseling; Prostate cancer screening; Erectile dysfunction, unspecified erectile dysfunction type; Other chest pain 06/23/2024 Travel 06/16/2024 Patient Outreach [facility] [address] [place] [address] Conor [place]w MD Pre-visit Planning (SDOH negative, [...] Procedure Name Priority Date/Time Associated Diagnosis Comments STRESS TEST WITH MYOCARDIAL PERFUSION Routine 08/25/2024 8:28 AM EDT Other chest pain TESTOSTERONE, FREE (DIALYSIS) AND TOTAL,MS Routine 07/30/2024 [...] syndrome from Last 3 Months Results * Stress test with myocardial perfusion (08/25/2024 8:28 AM EDT) 08/25/2024 8:28 AM EDT Narrative [facility] - 08/27/2024 2:09 PM EDT ? [facility] ?[address] ?[place] [address] ?Nuclear Medicine Report ? Signed ? Patient: Duncan Agustin,Andrea ?MR#: ?? [id number] ? : 1970 ?Acct:[id number] ? Age/Sex: 53 / M ?ADM Date: 08/25/24 ? Loc: HO.CARD ? Attending Dr: Conor Coyle MD ? Ordering Physician: Conor [place]w MD ?? Date of Service: 08/25/24 ?? Procedure(s): NM cardiolite stress test ?? Accession Number(s): [id number] ? cc: Conor [place] MD ? EXERCISE MYOCARDIAL PERFUSION STUDY ? INDICATION: ?? Chest pain to evaluate for myocardial ischemia ? TECHNIQUE: ? The patient was brought in for an exercise perfusion study on ?? 08/25/2024. Patient performed exercise as per Norbert protocol and was ?? injected ??30 mCi of sestamibi once target heart rate was achieved. ?? Images were obtained using the SPECT gamma camera interlaced with the ?? gating device. Images were obtained in [supine position. ? Resting perfusion study was performed on 08/27/2024. Patient was ?? administered 30 mCi of sestamibi intravenously at rest. Images were ?? then obtained in supine position. ? Images obtained without without CT attenuation. Total DLP 121 mGy-cm. ? Images were processed with the software and compared side to side in ?? short axis, horizontal long axis and vertical long axis views. ? FINDINGS: ? Raw images were reviewed ? The stress perfusion study showed ??nonattenuated images show overall ?? normal uptake of radiotracer in all segments of the LV myocardium. ?? Attenuated corrected images show minimal thinning of the LV ?? myocardium.. The gated study shows normal LV systolic function with ?? calculated LVEF of 56%. LV cavity is minimally dilated in size. The ?? gated study shows normal systolic ??wall thickening and contraction of ?? segments. ? Resting study shows no change in perfusion pattern compared to stress ?? perfusion study. Gating at rest reveals normal systolic wall motion ?? with ejection fraction at greater than 55%. ? The findings are consistent with normal myocardial perfusion. ? NM/NM cardiolite stress test ?? IMPRESSION: ? 1. ??Myocardial perfusion imaging study shows normal myocardial ?? perfusion. ?? 2. ??Gated LVEF is 56. ?? 3. Transient ischemic dilatation not present. ? EKG revealed no ischemia. ? Electronically signed by: ??Ramu Green MD ??08/27/2024 02:07 PM EDT RP ? Dictated By: ?Ramu Green MD ? Signed By: ?<Electronically signed by Ramu Green MD in OV> ?08/27/24 1407 ? DD/ 0828 ? TD/TT: 08/25/24 0900 ? Payroll Coordinator: ? Procedure Note Donotgurdeepter, Image - 08/27/2024 [place] [id number] Nuclear Medicine Report Signed Patient: nAdrea ClaytonMR#: [id number] : 1970Acct:[id number] Age/Sex: 53 / MADM Date: 08/25/24 Loc: [facility] Attending Dr: Conor Coyle MD Ordering Physician: Conor [place] MD Date of Service: 08/25/24 Procedure(s): NM cardiolite stress test Accession Number(s): [id number] cc: Conor [place] MD EXERCISE MYOCARDIAL PERFUSION STUDY INDICATION: Chest pain to evaluate for myocardial ischemia TECHNIQUE: The patient was brought in for an exercise perfusion study on 08/25/2024. Patient performed exercise as per Norbert protocol and was injected 30 mCi of sestamibi once target heart rate was achieved. Images were obtained using the SPECT gamma camera interlaced with the gating device. Images were obtained in [supine position. Resting perfusion study was performed on 08/27/2024. Patient was administered 30 mCi of sestamibi intravenously at rest. Images were then obtained in supine position. Images obtained without without CT attenuation. Total DLP 121 mGy-cm. Images were processed with the software and compared side to side in short axis, horizontal long axis and vertical long axis views. FINDINGS: Raw images were reviewed The stress perfusion study showed nonattenuated images show overall normal uptake of radiotracer in all segments of the LV myocardium. Attenuated corrected images show minimal thinning of the LV myocardium.. The gated study shows normal LV systolic function with calculated LVEF of 56%. LV cavity is minimally dilated in size. The gated study shows normal systolic wall thickening and contraction of segments. Resting study shows no change in perfusion pattern compared to stress perfusion study. Gating at rest reveals normal systolic wall motion with ejection fraction at greater than 55%. The findings are consistent with normal myocardial perfusion. NM/NM cardiolite stress test IMPRESSION: 1. Myocardial perfusion imaging study shows normal myocardial perfusion. 2. Gated LVEF is 56. 3. Transient ischemic dilatation not present. EKG revealed no ischemia. Electronically signed by: Ramu Green MD 08/27/2024 02:07 PM EDT RP Dictated By: Ramu Green MD Signed By: <Electronically signed by Ramu Green MD in OV> 08/27/24 1407 DD/ 0828 TD/TT: 08/25/24 0900 Payroll Coordinator: us Conor Coyle MD CV STRESS PROCEDUR ES Final Result [facility] [address] [place] [phone] * (ABNORMAL) CBC auto differential (07/30/2024 9:30 AM EDT) Only the most recent of2 resultswithin the time period is included. White Blood Count 4.5(L) 4.8 - 10.8 X10*3/uL [facility] Red Blood Count 4.07(L) 4.60 - 5.80 X10*6/uL [facility] Hemoglobin 13.0(L) 14.0 - 18.0 g/dl [facility] Hematocrit 40.6(L) 42.0 - 52.0 % [facility] Mean Corpuscular Volume 99.8(H) 80.0 - 98.0 fL [facility] Mean Corpuscular Hemoglobin 31.9 27.0 - 33.0 pg [facility] Mean Corpuscular HGB Conc 32.0 31.0 - 36.0 g/dl [facility] Red Cell Distribution Width 13.1 11.0 - 16.0 % [facility] Platelet Count 251 160 - 400 X10*3/uL [facility] Mean Platelet Volume 10.8 9.4 - 12.4 fL [facility] Neutrophils Percent Auto 41.8(L) 45 - 73 % [facility] Imm Gran Pct Auto 0.2 0.0 - 0.4 % [facility] Lymphocytes Percent Auto 47.0(H) 20 - 40 % [facility] Monocytes Percent Auto 8.5 2 - 11 % [facility] Eosinophils Percent Auto 1.8 0 - 4 % [facility] Basophils Percent Auto 0.7 0 - 2 % [facility] NRBC Pct Auto 0.0 0.0 - 0.2 /100WBC [facility] Neutrophils Absolute Auto 1.9(L) 2.0 - 8.3 x10*3/uL [facility] Imm Gran Abs Auto 0.01 0.00 - 0.03 X10*3/uL [facility] Lymphocytes Absolute Auto 2.1 1.2 - 4.9 X10*3/uL [facility] Monocytes Absolute Auto 0.4 0.1 - 1.2 X10*3/uL [facility] Eosinophils Absolute Auto 0.1 0.0 - 0.4 X10*3/uL [facility] Basophils Absolute Auto 0.0 0.0 - 0.2 X10*3/uL [facility] NRBC Abs Auto 0.000 0.0 - 0.012 X10*3/uL [facility] Blood Venous blood specimen / Unknown 07/30/2024 9:30 AM EDT 07/30/2024 2:17 PM EDT us Conor Coyle MD LAB BLOOD ORDERABL ES Final Result [facility] [address] [place] [address] [phone] * Hepatitis C Antibody with Reflex to HCV, RNA, Quantitative, Real-Time PCR (07/30/2024 9:30 AM EDT) Hepatitis C Antibody Nonreactive Nonreactive [facility] Comment:Antibodies to HCV no t detected; does not exclude early acuteHCV infection. Blood Venous blood specimen / Unknown 07/30/2024 9:30 AM EDT 07/30/2024 2:17 PM EDT us Conor Coyle MD LAB BLOOD ORDERABL ES Final Result Performing Organization Address [facility] de Phone Number [facility] [address] [place] [phone] * HIV-1/2 Antigen and Antibodies, Fourth Generation, with Reflexes (07/30/2024 9:30 AM EDT) Pathologist [facility] HIV AB/AG Nonreactive Nonreactive [facility] Comment:HIV-1 p24 Ag and/or HIV-1/HIV-2 Ab not detected.A test result that is nonreactive does not exclude thepossibility of exposure to or infection with HIV-1 and/orHIV-2. Nonreactive results in this assay for individualswith prior exposure to HIV-1 and/or HIV-2 may be due toantigen and antibody levels that are below the limit ofdetection of this assay.The [employer] HIV Ag/Ab Combo assay result andsupplemental assay results should be interpreted inconjunction with the patient's clinical presentation,history and other laboratory results. If the results areinconsistent with clinical evidence, additional testing issuggested to confirm the result. Blood Venous blood specimen / Unknown 07/30/2024 9:30 AM EDT 07/30/2024 2:17 PM EDT us Conor Coyle MD LAB BLOOD ORDERABL ES Final Result Performing Organization Address [facility]/ZIP Co de Phone Number [facility] [address] [place] [address] [phone] * (ABNORMAL) Testosterone, Free (Dialysis) And Total, MS (07/30/2024 9:30 AM EDT) Testosterone, Total 209(A) 250 - 1100 ng/dL [facility] Comment:Men with clinically significant hypogonadal symptoms and testosterone valuesrepeatedly in the range of the 200-300 ng/dL or less, may benefit fromtestosterone treatment after adequate risk and benefits counseling.For additional information, please refer toNovocor Medical Systemstps://education.Lyxia/faq/YSF876(This link is being provided for informational/educational purposes only.)(Note)This test was developed and its analytical performancecharacteristics have been determined by [employer]. It hasnot been cleared or approved by the FDA. This assay hasbeen validated pursuant to the CLIA regulations and isused for clinical purposes. Testosterone, Free 35.6 35.0 - 155.0 pg/mL [facility] Comment:(Note)This test was developed and its analytical performancecharacteristics have been determined by [employer]. It hasnot been cleared or approved by the FDA. This assay hasbeen validated pursuant to the CLIA regulations and isused for clinical purposes.MDFmed [id number] [place] [address],[address] [place] [address] [phone] Edgar Chau MD, PhDTHIS TEST WAS PERFORMED AT:[place] [address] [place] [phone] CHAU MD,PHD Blood Venous blood specimen / Unknown 07/30/2024 9:30 AM EDT 07/30/2024 2:17 PM EDT us Conor Coyle MD LAB BLOOD ORDERABL ES Final Result Performing Organization Address [facility]/ZIP Co de Phone Number [facility] [address] [place] [address] [phone] * TSH W/Reflex to FT4 (07/02/2024 9:35 AM EST) TSH reflex Free T4 2.22 0.32 - 4.0 uIU/mL [facility] Blood Venous blood specimen / Unknown 07/02/2024 9:35 AM EST 07/02/2024 2:16 PM EST Conor Coyle MD LAB BLOOD ORDERABL ES Final Result Performing Organization Address City/[facility] Co de Phone Number [facility] [address] [place] [phone] * PSA, Total With Reflex to PSA, Free (07/02/2024 9:35 AM EST) PSA,Total (Free>4and<10) 0.82 0.00 - 4.00 ng/mL [facility] Comment:A Free PSA was not p [...] ORDERABL ES Final Result Performing Organization Address [facility]/ZIP Co de Phone Number [facility] [address] [place] [phone] * Hemoglobin A1c (07/02/2024 9:35 AM EST) Hemoglobin A1c 5.4 <6.0 % [facility] Comment:Hemoglobin A1C Refer ence Range Adults: 4.8 - 6.0 % Non diabetic: < 6.0 % Goal: < 7.0 %Additional Action Suggested: > 8.0 %Note: Hemoglobin A1c results are invalid for patients with abnormal amounts of HbF. Blood transfusions may impact the HbA1c concentration in the patient sample. Estimated Average Glucose 108 mg/dL [facility] Comment:eAG = Estimated ave rage glucose which is %A1C expressed asaverage glucose, using the formula of the [id number] Glucose study (ADAG), Diabetes Care, Vol.31,#8,Dec. 2007 Blood Venous blood specimen / Unknown 07/02/2024 9:35 AM EST 07/02/2024 2:16 PM EST us Conor Coyle MD LAB BLOOD ORDERABL ES Final Result [facility] [address] [place] [phone] * (ABNORMAL) Lipid Panel, Standard (07/02/2024 9:35 AM EST) Triglycerides 64 <150 mg/dL [facility] Comment:Desirable Triglyceri de: less than 150 mg/dLBorderline High Triglyceride 150-199 mg/dLHigh Triglyceride: 200-499 mg/dLVery High Triglyceride: greater than or equal to 5OO mg/dL Cholesterol 157 <200 mg/dL [facility] Comment:Desirable Cholestero l: less than 200 mg/dLBorderline High Cholesterol: 200-239 mg/dLHigh Cholesterol: greater than 239 mg/dL LDL Cholesterol Calculated 104(H) <100 mg/dL [facility] Comment:Desirable LDL: less than 100 mg/dLNear Optimal/Above Optimal LDL: 110- 129 mg/dLBorderline High LDL: 130-159 mg/dLHigh LDL: 160-189 mg/dLVery High LDL: greater than or equal to 190 mg/dL HDL Cholesterol 41 >40 mg/dL [facility] Comment:Desirable HDL: great er than 40 mg/dL Note: This HDL assay may give artificially low results in patients with liver disease. Blood Venous blood specimen / Unknown 07/02/2024 9:35 AM EST 07/02/2024 2:16 PM EST Conor Coyle MD LAB BLOOD ORDERABL ES Final Result [facility] [address] [place], [place] [phone] * (ABNORMAL) Comprehensive Metabolic Panel (07/02/2024 9:35 AM EST) Sodium 142 135 - 145 mmol/L [facility] Potassium 3.8 3.3 - 5.1 mmol/L [facility] Chloride 109(H) 96 - 108 mmol/L [facility] Carbon Dioxide 27 22 - 29 mmol/L [facility] Anion Gap 10(L) 12 - 20 [facility] Urea Nitrogen (BUN) 11 9 - 16 mg/dL [facility] Creatinine, Serum 0.80 0.5 - 1.4 mg/dL [facility] Estimated Glomerular Filt Rate >60 [facility] Comment:Chronic Kidney Disea se: Estimated GFR < 60 mL/min/1.33u3Oyygco Kidney Disease: Estimated GFR < 15 mL/min/1.73m2 Glucose 78 60 - 115 mg/dL [facility] Calcium 9.1 8.4 - 10.2 mg/dL [facility] Bilirubin, Total 0.4 0.0 - 1.0 mg/dL [facility] Aspartate Amino Transferase 30 5 - 37 U/L [facility] Alanine Aminotransferase 26 0 - 40 U/L [facility] Total Protein 7.3 6.5 - 8.0 g/dL [facility] Albumin Level 4.2 3.5 - 5.0 g/dL [facility] Alkaline Phosphatase 72 39 - 117 U/L [facility] Blood Venous blood specimen / Unknown 07/02/2024 9:35 AM EST 07/02/2024 2:16 PM EST Conor Coyle MD LAB BLOOD ORDERABL ES Final Result [facility] [address] [place] [address] [phone] from Last 3 Months Insurance [employer] Care Teams Cartographic Engineer Relationship Specialty Start Date End Date Conor [place] MD [address] [place] [phone] PCP - General Internal Medicine 04/07/24
[2024-09-10 08:58] LABS: Testosterone, Free 47.1 pg/mL (35.0-155.0); Testosterone, Total 258 ng/dL (250-1100)
== END 2024-09-03 08:37 | disposition home or self-care (01) ==
LOC: HO.CHCLDS 08:36
PROVIDERS: Visit Provider Internal Medicine
DX: N52.9 Male erectile dysfunction, unspecified (principal)
CPT/HCPCS: 36415; 84402; 84403

== ENCOUNTER 2024-09-03 14:14 | Outpatient (AMB) | payer OTHER, SELFPAY ==
[2024-09-03 14:17] VITALS: BP 132/74; PULSE 66; O2SAT 96; BMI 32.2
--- NOTE | 2024-09-03 14:17 | MHC.OFFVIS ---
Vital Signs 09/03/24 14:17 Height 5 ft 6 in Weight 199 lb 8 oz BMI 32.2 BP 132/74 Blood Pressure Location Lt brachial Position Sitting Pulse 66 Pulse Source Pulse Oximeter Pulse Oximetry (%) 96 Oxygen Delivery Method Room Air Intake Visit Reasons: Abdominal pain Intake Note: ESTABLISHED PATIENT for chronic abd pain mgmt. S/P [place] May 2024. Chief Complaint; Pt denies any GI sx or concerns at this time. Carpet Floor Layer Apprentice Required: No Carpet Floor Layer Apprentice Services: Carpet Floor Layer Apprentice Offered & Declined Accompanied by: Spouse Allergies No Known Allergies Allergy (Verified 09/03/24 14:22) HPI HPI Abdominal pain: Details: LAST VISIT: Colon cancer screening Plan Patient denies any GI, cardiac or respiratory symptoms.? Denies any issues with anesthesia in the past.?Patient has sleep apnea and has been using CPAP every night. No history infectious diseases in the past or present.? Not on any anticoagulation therapy.? No family or personal history of colon cancer or polyps.? Patient denies melena, hematochezia, unintentional weight loss or ribbon like stools.? Discussed at length the pre-procedure,? prep, diet & medications as well as what to expect prior, during and after the procedure.?? Stressed the importance of good bowel prep.? Recommended the use of Vaseline or Calmoseptine OTC & baby wipes with bowel movements to promote comfort.? ?Patient verbalizes understanding and agrees to plan of care.? He was given the opportunity to ask questions and all questions answered.? We will see him after the procedure.? Medications New bisacodyl (Dulcolax (bisacodyl)) take 4 tabs at noon the day before your colonoscopy 20 mg (4 x 5 mg) PO ONCE 1 day 4 tabs 0RF Z12.11 polyethylene glycol 3350 (Miralax) As directed by gastroenterology department at [facility] 238 grams PO ONCE 238 grams 0RF Z12.11 COLONOSCOPY: Findings: Terminal Ileum-normal Cecum:normal right sided retrofelxion- normal Ascending Colon: normal Transverse Colon -normal Descending Colon: 3-4 mm sessile polyp removed with cold forceps Sigmoid Colon: mild to moderate diverticulosis Rectum: Retroflexion with small internal hemorrhoids seen, grade I Anorectum - normal Intervention: cold forceps Colon preparation: Beeson Bowel Preparation Scale Right colon; 2 Transverse colon: 2 Left colon; 2 (0 = Unprepared colon segment with mucosa not seen due to solid stool that cannot be cleared. 1 = Portion of mucosa of the colon segment seen, but other areas of the colon segment not well seen due to staining, residual stool and/or opaque liquid. 2 = Minor amount of residual staining, small fragments of stool and/or opaque liquid, but mucosa of colon segment seen well. 3 = Entire mucosa of colon segment seen well with no residual staining, small fragments of stool or opaque liquid) Impression and Post Procedure Diagnosis: diverticulosis colon polyp internal hemorrhoids Plan: High fiber diet leaflet Avoid straining at stool, epsom salts and sitz bath, anusol supps or cream Repeat Colonoscopy in 5-7 years if adenomatous polyp, 10 yrs if hyperplastic or earlier if clinically indicated PATHOLOGY RESULTS Diagnosis Colon, descending, polypectomy: Tubular adenoma; negative for high-grade dysplasia. TODAY'S VISIT Patient is here today for follow-up and to discuss colonoscopy results. Patient denies any ill effects from the prep, anesthesia or procedure itself. Patient reports that he had rectal itching after the procedure, purchased preparation H and his symptoms went away. Patient reports that occasionally he strains when having a bowel movement. Small hemorrhoids found, moderate diverticulosis in sigmoid colon and small tubular adenoma in descending colon. Patient denies any other GI concerning symptoms. Reports to be feeling well. Recommendation for 5 years screening [facility] Medical History (Updated 09/03/24 @ 20:18 by Petrona Villalta, DENTAL SPECIALIST-) Tubular adenoma Low serum testosterone level Vitamin D deficiency Erectile dysfunction Obesity (BMI 30.0-34.9) Moderate obstructive sleep apnea Surgical History No pertinent past surgical history Family History Mother Acute myocardial infarction, Onset Age: 72 Brother Diabetes mellitus Social History Housing: Apartment Alcohol intake: never Patient Tobacco Use Status: Never used Tobacco e-Cigarette/Vaping Use: Never Used service: No Current occupational status: employed Cognitive needs: No Hearing needs: No Vision needs: No Review of Systems Const Denies weight gain and Denies weight loss ENT Reports no additional complaints, Denies dysphagia and Denies odynophagia Card Reports no additional complaints Resp Reports no additional complaints GI Denies abdominal pain, Denies belching, Denies melena, Denies bloating, Denies change in bowel habits, Reports constipation (Occasional), Denies dysphagia, Denies excessive flatus, Denies dyspepsia, Denies heartburn, Denies diarrhea, Denies loose stools, Denies nausea, Denies odynophagia, Denies vomiting and Reports other (Rectal itch) Reports no additional complaints Musc Reports no additional complaints Neuro Reports no additional complaints Psych Reports no additional complaints Endo Reports no additional complaints Physical Exam Vital Signs: Last Vital Signs Pulse 66 09/03/24 14:17 BP 132/74 09/03/24 14:17 Pulse Ox 96 09/03/24 14:17 Oxygen Delivery Method Room Air 09/03/24 14:17 BMI result Body Mass Index 32.2 Const General: healthy appearing and no acute distress Nutritional Appearance: obese Orientation/consciousness: patient oriented x3 Resp Effort & Inspection: normal respiratory effort, able to speak in complete sentences, no tracheal deviation and symmetric chest movement Auscultation: clear to auscultation bilaterally Cardio Rate: regular rate GI Inspection: Yes normal to inspection, No distended and Yes obesity Palpation (GI): Soft to palpation, not firm, nontender and No hepatosplenomegaly present Auscultation: normal bowel sounds General: Yes no CVA tenderness Back/Spine/Pelvis Back: no CVA tenderness Skin General skin exam: elasticity normal, turgor normal and dry skin Neuro General: patient oriented x3 Psych Appearance: grossly normal Mental Status: mental status grossly normal Assessment & Plan Assessment & Plan (1) Tubular adenoma: Code(s): D36.9 - Benign neoplasm, unspecified site Category: Medical (2) Status post colonoscopy: Code(s): Z98.890 - Other specified postprocedural states (3) Hemorrhoids without complication: Code(s): K64.9 - Unspecified hemorrhoids (4) Diverticulosis: Code(s): K57.90 - Diverticulosis of intestine, part unspecified, without perforation or abscess without bleeding (5) Constipation: Code(s): K59.00 - Constipation, unspecified Qualifiers: Constipation type: slow transit constipation Qualified Code(s): K59.01 - Slow transit constipation Plan Colonoscopy in 5 years, sooner if clinically necessary. Increase fluid intake and activity to pull moderate a bowel motility. Patient reports constipation occasionally feels like needs to push to have a bowel movement. Avoid straining, Colace sent to pharmacy, Proctosol as needed. Patient was encouraged to increase fiber intake. Sitz baths with Epsom salts recommended. Follow-up as needed. He is agreeable to this plan and verbalizes understanding of instructions. He was given the opportunity to ask questions and all questions answered. Thank you for allowing me to participate in his care Medications: New docusate sodium 200 mg (2 x 100 mg) PO BEDTIME 180 caps 3RF K59.00 - Constipation, unspecified hydrocortisone 2.5% (Proctosol HC) 1 appl NC BID-QID PRN 30 grams 2RF hemorrhoids K64.9 - Unspecified hemorrhoids Coding Level of Care Code Est Pt Level 3 (89220) Diagnoses Tubular adenoma D36.9 Status post colonoscopy Z98.890 Hemorrhoids without complication K64.9 Diverticulosis K57.90 Slow transit constipation K59.01 Constipation type: slow transit constipation Time Spent (min) 25 Comment 15 minutes spent with patient and additional 10 minutes spent reviewing his records
--- OUTSIDE RECORDS SUMMARY | 2024-09-03 17:08 | XMS_ITS | Clinical Summary ---
Author Organization [employer] Address [address] [place] [address] [address] [place] [address] Care Team Providers Care Textile Chemist Name Role Phone Conor [place] MD Primary [...] of breath, his mother due to a VT at 60 yrs, will order a stress [...] Department Care Team Description 08/14/2024 Telephone [facility] [address] [place] [address] Conor [place]w MD Results 08/14/2024 Telephone [facility] [address] [place] [address] Conor [place]w MD Results 08/11/2024 Telephone [facility] [address] [place] [address] Conor [place]w MD Results 08/11/2024 Orders Only [facility] [address] [place] [address] Conor [place]w MD Erectile dysfunction, unspecified erectile dysfunction type (Primary Dx) 07/30/2024 8:30 AM EDT Office Visit [facility] [address] [place] [address] Conor [place]w MD Erectile dysfunction, unspecified erectile dysfunction type (Primary Dx) 07/30/2024 Travel 06/23/2024 2:30 PM EST Office Visit [facility] [address] [place] [address] Conor [place]w MD Obstructive sleep apnea syndrome (Primary Dx); Dietary counseling; Exercise counseling; Prostate cancer screening; Erectile dysfunction, unspecified erectile dysfunction type; Other chest pain 06/23/2024 Travel 06/16/2024 Patient Outreach [facility] [address] [place] [address] Conor Mathew MD Pre-visit Planning (SDOH negative, [...] AM EDT) 08/25/2024 8:28 AM EDT Narrative [facility] - 08/27/2024 2:09 PM EDT ? [facility] ?[address] ?[place] [address] ?Nuclear Medicine Report ? Signed ? Patient: Duncan Agustin,Andrea ?MR#: ?? [id number] ? : 1970 ?Acct:[id number] ? Age/Sex: 53 / M ?ADM Date: 08/25/24 ? Loc: HO.CARD ? Attending Dr: Conor Coyle MD ? Ordering Physician: Conor [place]w MD ?? Date of Service: 08/25/24 ?? Procedure(s): NM cardiolite stress test ?? Accession Number(s): [id number] ? cc: Conor [place] MD ? EXERCISE [...] DD/ 0828 ? TD/TT: 08/25/24 0900 ? Seed Analyst: ? Procedure Note Donotgurdeepter, Image - 08/27/2024 [place] [address] Nuclear Medicine Report Signed Patient: Andrea ClaytonMR#: [id number] : 1970Acct:[id number] Age/Sex: 53 / [place] Date: 08/25/24 Loc: [facility] Attending Dr: Conor Coyle MD Ordering Physician: Conor [place] MD Date of Service: 08/25/24 Procedure(s): NM cardiolite stress test Accession Number(s): [id number] cc: Conor [place] MD EXERCISE MYOCARDIAL PERFUSION [...] 08/27/24 1407 DD/ 0828 TD/TT: 08/25/24 0900 Seed Analyst: us Conor Coyle MD CV STRESS PROCEDUR ES Final Result [facility] [address] [place] [phone] * (ABNORMAL) CBC auto differential (07/30/2024 9:30 AM EDT) Only the most recent of2 resultswithin the time period is included. White Blood Count 4.5(L) 4.8 - 10.8 X10*3/uL [facility] Red Blood Count 4.07(L) 4.60 - 5.80 X10*6/uL [facility] Hemoglobin 13.0(L) 14.0 - 18.0 g/dl [facility] Hematocrit 40.6(L) 42.0 - 52.0 % [facility] Mean Corpuscular Volume 99.8(H) 80.0 - 98.0 fL [facility] Mean Corpuscular Hemoglobin 31.9 27.0 - 33.0 pg [facility] Mean Corpuscular HGB Conc 32.0 31.0 - 36.0 g/dl [facility] Red Cell Distribution Width 13.1 11.0 - 16.0 % [facility] Platelet Count 251 160 - 400 X10*3/uL [facility] Mean Platelet Volume 10.8 9.4 - 12.4 fL [facility] Neutrophils Percent Auto 41.8(L) 45 - 73 % [facility] Imm Gran Pct Auto 0.2 0.0 - 0.4 % [facility] Lymphocytes Percent Auto 47.0(H) 20 - 40 % [facility] Monocytes Percent Auto 8.5 2 - 11 % [facility] Eosinophils Percent Auto 1.8 0 - 4 % [facility] Basophils Percent Auto 0.7 0 - 2 % [facility] NRBC Pct Auto 0.0 0.0 - 0.2 /100WBC [facility] Neutrophils Absolute Auto 1.9(L) 2.0 - 8.3 x10*3/uL [facility] Imm Gran Abs Auto 0.01 0.00 - 0.03 X10*3/uL [facility] Lymphocytes Absolute Auto 2.1 1.2 - 4.9 X10*3/uL [facility] Monocytes Absolute Auto 0.4 0.1 - 1.2 X10*3/uL [facility] Eosinophils Absolute Auto 0.1 0.0 - 0.4 X10*3/uL [facility] Basophils Absolute Auto 0.0 0.0 - 0.2 X10*3/uL [facility] NRBC Abs Auto 0.000 0.0 - 0.012 X10*3/uL [facility] Blood Venous blood specimen / Unknown 07/30/2024 9:30 AM EDT 07/30/2024 2:17 PM EDT us Conor Coyle MD LAB BLOOD ORDERABL ES Final Result [facility] [address] [place] [address] [phone] * Hepatitis C Antibody with Reflex to HCV, RNA, Quantitative, Real-Time PCR (07/30/2024 9:30 AM EDT) Hepatitis C Antibody Nonreactive Nonreactive [facility] Comment:Antibodies to HCV no t detected; does not exclude early acuteHCV infection. Blood Venous blood specimen / Unknown 07/30/2024 9:30 AM EDT 07/30/2024 2:17 PM EDT us Conor Coyle MD LAB BLOOD ORDERABL ES Final Result Performing Organization Address [facility] de Phone Number [facility] [address] [place] [phone] * HIV-1/2 Antigen and Antibodies, Fourth Generation, with Reflexes (07/30/2024 9:30 AM EDT) Pathologist [facility] HIV AB/AG Nonreactive Nonreactive [facility] Comment:HIV-1 p24 Ag and/or HIV-1/HIV-2 Ab not detected.A test result that is nonreactive does not exclude thepossibility of exposure to or infection with HIV-1 and/orHIV-2. Nonreactive results in this assay for individualswith prior exposure to HIV-1 and/or HIV-2 may be due toantigen and antibody levels that are below the limit ofdetection of this assay.The [employer] HIV Ag/Ab Combo assay result andsupplemental assay results should be interpreted inconjunction with the patient's clinical presentation,history and other laboratory results. If the results areinconsistent with clinical evidence, additional testing issuggested to confirm the result. Blood Venous blood specimen / Unknown 07/30/2024 9:30 AM EDT 07/30/2024 2:17 PM EDT us Conor Coyle MD LAB BLOOD ORDERABL ES Final Result Performing Organization Address [facility]/ZIP Co de Phone Number [facility] [address] [place] [address] [phone] * (ABNORMAL) Testosterone, Free (Dialysis) And Total, MS (07/30/2024 9:30 AM EDT) Testosterone, Total 209(A) 250 - 1100 ng/dL [facility] Comment:Men with clinically significant hypogonadal symptoms and testosterone valuesrepeatedly in the range of the 200-300 ng/dL or less, may benefit fromtestosterone treatment after adequate risk and benefits counseling.For additional information, please refer toTITIN Techtps://education.[employer]/faq/KDZ133(This link is being provided for informational/educational purposes only.)(Note)This test was developed and its analytical performancecharacteristics have been determined by [employer]. It hasnot been cleared or approved by the FDA. This assay hasbeen validated pursuant to the CLIA regulations and isused for clinical purposes. Testosterone, Free 35.6 35.0 - 155.0 pg/mL [facility] Comment:(Note)This test was developed and its analytical performancecharacteristics have been determined by [employer]. It hasnot been cleared or approved by the FDA. This assay hasbeen validated pursuant to the CLIA regulations and isused for clinical purposes.MDFmed [id number] [place] [address],[address] [place] [address] [phone] Edgar Chau MD, PhDTHIS TEST WAS PERFORMED AT:[place] [address] [place] [phone] CHAU MD,PHD Blood Venous blood specimen / Unknown 07/30/2024 9:30 AM EDT 07/30/2024 2:17 PM EDT us Conor Coyle MD LAB BLOOD ORDERABL ES Final Result Performing Organization Address [facility]/ZIP Co de Phone Number [facility] [address] [place] [phone] * TSH W/Reflex to FT4 (07/02/2024 9:35 AM EST) TSH reflex Free T4 2.22 0.32 - 4.0 uIU/mL [facility] Blood Venous blood specimen / Unknown 07/02/2024 9:35 AM EST 07/02/2024 2:16 PM EST Conor Coyle MD LAB BLOOD ORDERABL ES Final Result Performing Organization Address City/[facility] Co de Phone Number [facility] [address] [place] [phone] * PSA, Total With Reflex to PSA, Free (07/02/2024 9:35 AM EST) PSA,Total (Free>4and<10) 0.82 0.00 - 4.00 ng/mL [facility] Comment:A Free PSA was not p [...] ORDERABL ES Final Result Performing Organization Address [facility]/ZIP Co de Phone Number [facility] [address] [place] [phone] * Hemoglobin A1c (07/02/2024 9:35 AM EST) Hemoglobin A1c 5.4 <6.0 % [facility] Comment:Hemoglobin A1C Refer ence Range Adults: 4.8 - 6.0 % Non diabetic: < 6.0 % Goal: < 7.0 %Additional Action Suggested: > 8.0 %Note: Hemoglobin A1c results are invalid for patients with abnormal amounts of HbF. Blood transfusions may impact the HbA1c concentration in the patient sample. Estimated Average Glucose 108 mg/dL [facility] Comment:eAG = Estimated ave rage glucose which is %A1C expressed asaverage glucose, using the formula of the F6O-JdwtqmcXfzszun Glucose study (ADAG), Diabetes Care, Vol.31,#8,Dec. 2007 Blood Venous blood specimen / Unknown 07/02/2024 9:35 AM EST 07/02/2024 2:16 PM EST us Conor Coyle MD LAB BLOOD ORDERABL ES Final Result [facility] [address] [place] [phone] * (ABNORMAL) Lipid Panel, Standard (07/02/2024 9:35 AM EST) Triglycerides 64 <150 mg/dL [facility] Comment:Desirable Triglyceri de: less than 150 mg/dLBorderline High Triglyceride 150-199 mg/dLHigh Triglyceride: 200-499 mg/dLVery High Triglyceride: greater than or equal to 5OO mg/dL Cholesterol 157 <200 mg/dL [facility] Comment:Desirable Cholestero l: less than 200 mg/dLBorderline High Cholesterol: 200-239 mg/dLHigh Cholesterol: greater than 239 mg/dL LDL Cholesterol Calculated 104(H) <100 mg/dL [facility] Comment:Desirable LDL: less than 100 mg/dLNear Optimal/Above Optimal LDL: 110- 129 mg/dLBorderline High LDL: 130-159 mg/dLHigh LDL: 160-189 mg/dLVery High LDL: greater than or equal to 190 mg/dL HDL Cholesterol 41 >40 mg/dL [facility] Comment:Desirable HDL: great er than 40 mg/dL Note: This HDL assay may give artificially low results in patients with liver disease. Blood Venous blood specimen / Unknown 07/02/2024 9:35 AM EST 07/02/2024 2:16 PM EST Conor Coyle MD LAB BLOOD ORDERABL ES Final Result [facility] [address], [place] [phone] * (ABNORMAL) Comprehensive Metabolic Panel (07/02/2024 9:35 AM EST) Sodium 142 135 - 145 mmol/L [facility] Potassium 3.8 3.3 - 5.1 mmol/L [facility] Chloride 109(H) 96 - 108 mmol/L [facility] Carbon Dioxide 27 22 - 29 mmol/L [facility] Anion Gap 10(L) 12 - 20 [facility] Urea Nitrogen (BUN) 11 9 - 16 mg/dL [facility] Creatinine, Serum 0.80 0.5 - 1.4 mg/dL [facility] Estimated Glomerular Filt Rate >60 [facility] Comment:Chronic Kidney Disea se: Estimated GFR < 60 mL/min/1.46n5Kjvwkt Kidney Disease: Estimated GFR < 15 mL/min/1.73m2 Glucose 78 60 - 115 mg/dL [facility] Calcium 9.1 8.4 - 10.2 mg/dL [facility] Bilirubin, Total 0.4 0.0 - 1.0 mg/dL [facility] Aspartate Amino Transferase 30 5 - 37 U/L [facility] Alanine Aminotransferase 26 0 - 40 U/L [facility] Total Protein 7.3 6.5 - 8.0 g/dL [facility] Albumin Level 4.2 3.5 - 5.0 g/dL [facility] Alkaline Phosphatase 72 39 - 117 U/L [facility] Blood Venous blood specimen / Unknown 07/02/2024 9:35 AM EST 07/02/2024 2:16 PM EST Conor Coyle MD LAB BLOOD ORDERABL ES Final Result [facility] [address] [place] [phone] [phone] from Last 3 Months Insurance [employer] Care Teams Textile Chemist Relationship Specialty Start Date End Date Conor [place] MD [address] [place] [phone] PCP - General Internal Medicine 04/07/24
== END 2024-09-03 14:39 | disposition home or self-care (01) ==
PROVIDERS: Visit Provider Nurse Practitioner Family
DX: D36.9 Benign neoplasm, unspecified site (principal); Z98.890 Other specified postprocedural states; K64.9 Unspecified hemorrhoids; K57.90 Diverticulosis of intestine, part unspecified, without perforation or abscess without bleeding; K59.01 Slow transit constipation
CPT/HCPCS: 99213

== ENCOUNTER 2024-12-01 08:15 | Outpatient (AMB) | payer OTHER, SELFPAY ==
--- NOTE | 2024-12-01 08:18 | A.OFFVIS_ITS ---
Intake Visit Reasons: 6 mnth follow up Intake Note: Patient presents follow up JESÚS medication. ENT booked 01/29/25 Pre Owned Sales Consultant Required: Yes Pre Owned Sales Consultant Services: Pre Owned Sales Consultant Offered & Declined Allergies No Known Allergies Allergy (Verified 12/01/24 08:18) Do you need a note to return to daycare/school/sports/work: No HPI Comments Details: 54-y/o male patient presents for follow up televideo visit for moderate obstructive sleep apnea. Patient denies any significant interval medical history changes. Since the last visit, patient started CPAP at 8 cm H2O with EPR 3, however he did not tolerate this. So CPAP pressure was increased to 9 cm H2O with EPR 3 and then again to 10 cm H2O with EPR 3. Patient states that on his current setting, 10 cm H2O with EPR 3, he is tolerating it better. He is using it regularly, but has missed a october due to travel. He does not routinely get 4 hours abuse, but he is trying. He states he has enough CPAP supplies, and is receiving these regularly. He has cleaning his CPAP supplies daily and is now using distilled water. He has an appointment with ENT in February to discuss alternative JESÚS treatments other than or in conjunction with PAP therapy. [place] [id number] Email: [email or web address] Compliance Report Usage August 24, 2019 November 20, 20242024 Overall usage 70% Usage greater than 4 hours 36% Average usage days used: 3 hours 50 minutes [employer] 10 [employer] Serial number [id number] Mode CPAP 10 cm H2O with EPR 3 Median leaks 12.8 L/min Residual events/AHI: 5.5 per hour [facility] Medical History Tubular adenoma Low serum testosterone level Vitamin D deficiency Erectile dysfunction Obesity (BMI 30.0-34.9) Moderate obstructive sleep apnea Surgical History No pertinent past surgical history Family History Mother Acute myocardial infarction, Onset Age: 72 Brother Diabetes mellitus Social History Housing: Apartment Alcohol intake: never Patient Tobacco Use Status: Never used Tobacco e-Cigarette/Vaping Use: Never Used service: No Current occupational status: employed Cognitive needs: No Hearing needs: No Vision needs: No Physical Exam Const General: no acute distress Orientation/consciousness: patient oriented x3 Resp Effort & Inspection: able to speak in complete sentences Neuro General: patient oriented x3 Psych Mental Status: mental status grossly normal Speech and movement: Clear speech present Attitude: cooperative Telehealth Telehealth Telehealth Platform: [facility] Location of provider rendering services: practice address Location of patient: address on file Patient Identification confirmed using: Name, : Yes Telehealth method: video Patient verbally consented to treatment: Yes Patient verbally consented to billing insurance company: Yes Patient informed of any privacy concerns related to visit: Yes Minutes spent on Phone/Video with Pt.: 8 Assessment & Plan Assessment & Plan (1) Moderate obstructive sleep apnea: Comment: The AHI was 22/hr and oxygen annia was 88% Code(s): G47.33 - Obstructive sleep apnea (adult) (pediatric) Category: Medical Plan For JESÚS: Patient has increased his use of CPAP, and is tolerating it better on his current CPAP settings. However, as he is not able to use his CPAP consistently for more than 4 hours a night, I would still like him to have ENT consult to assess for alternate or adjunctive sleep apnea treatments. * Per patient, ENT appointment is not scheduled for February of 2025 Continue CPAP 10 cmH2O w/ EPR 3 nightly > 4 hours, as pt continues to have good clinical effect from use. * Clean CPAP machine and supplies routinely. * Change CPAP supplies routinely. * Use distilled water in CPAP water reservoir. * Pt to contact us or respiratory company with any questions or concerns. Pt to follow-up in 6 months or sooner prn. Coding Level of Care Code Tele Est Pt Level 3 (06733) Diagnoses Moderate obstructive sleep apnea G47.33
--- OUTSIDE RECORDS SUMMARY | 2024-12-01 08:21 | XMS_ITS | Clinical Summary ---
Author Organization [employer] Address [address] [place] [address] [address] [place] [address] Care Team Providers Care Process Control Specialist Name Role Phone Conor Mathew MD Primary [...] of breath, his mother due to a ME at 60 yrs, will order a stress [...] will prescribe cialis, follow up as needed Family History Medical History Relation Name Comments [...] is your housing situation today? I have dorairis arthur 04/07/[address] [...] 64 07/30/2024 8:47 AM EDT Temperature 36.1 C (97 F) 07/30/2024 8:47 AM EDT Respiratory Rate 20 [...] 1968 FIT 1968 FOBT 1968 Sigmoidoscopy 1968 Disability Screening 1968 DTaP/Tdap/Td Vaccines (1 - Tdap) 10/07/1987 Hepatitis B Vaccines (1 of 3 - 19+ 3-dose series) 10/07/1987 Pneumococcal Vaccine: 50+ Years (1 of 1 - PCV) 2018 Zoster Vaccines (1 of 2) 2018 COVID-19 Vaccine ( - 2023-2 5 season) 2024 Influenza Vaccine (#1) 2025 Tobacco Screening 06/23/2025 06/23/2024 Alcohol/Substance Use Screening [...] patient's age to complete this topic Meningococcal B Vaccine Aged Out No l onger eligible based on patient's age to complete [...] Comments TESTOSTERONE, FREE (DIALYSIS) AND TOTAL,MS Routine 09/03/2024 8:48 AM EDT Erectile dysfunction, unspecified erectile dysfunction type HEPATITIS C AB W/REFL TO HCV RNA, QN, PCR Routine 07/30/2024 9:30 AM EDT Erectile dysfunction, unspecified erectile dysfunction type HIV 1/2 ANTIGEN/ANTIBODY, FOURTH GENERATION W/RFL Routine 07/30/2024 9:30 AM EDT Erectile dysfunction, unspecified erectile dysfunction type LIPID PANEL, STANDARD Routine 07/02/2024 9:35 AM EST Obstructive sleep apnea syndrome from Last 3 Months or Most Recently Relevant to Health Maintenance Results * Testosterone, Free (Dialysis) And Total, MS (09/03/2024 8:48 AM EDT) Testosterone, Total 258 250 - 1100 ng/dL [facility] Comment:Men with clinically significant hypogonadal symptoms and testosterone valuesrepeatedly in the range of the 200-300 ng/dL or less, may benefit fromtestosterone treatment after adequate risk and benefits counseling.For additional information, please refer [email or web address].[email or web address]/faq/LAS246(This link is being provided for informational/educational purposes only.)(Note)This test was developed and its analytical performancecharacteristics have been determined by [employer]. It hasnot been cleared or approved by the FDA. This assay hasbeen validated pursuant to the CLIA regulations and isused for clinical purposes. Testosterone, Free 47.1 35.0 - 155.0 pg/mL [facility] Comment:(Note)This test was developed and its analytical performancecharacteristics have been determined by [employer]. It hasnot been cleared or approved by the FDA. This assay hasbeen validated pursuant to the CLIA regulations and isused for clinical purposes.[address]ed [email or web address] [place] [address],[address] [place] [address] [phone] James L. Frame, MD, PhDTHIS TEST WAS PERFORMED AT:[place] [address] [place] [phone] CHAU MD,PHD Blood Venous blood specimen / Unknown 09/03/2024 8:48 AM EDT 09/03/2024 2:06 PM EDT Conor Coyle MD LAB BLOOD ORDERABL ES Final Result Performing Organization Address [facility] Co de Phone Number [facility] [address] [place] [phone] * Hepatitis C Antibody with Reflex to HCV, RNA, Quantitative, Real-Time PCR (07/30/2024 9:30 AM EDT) Hepatitis C Antibody Nonreactive Nonreactive [facility] Comment:Antibodies to HCV no t detected; does not exclude early acuteHCV infection. Blood Venous blood specimen / Unknown 07/30/2024 9:30 AM EDT 07/30/2024 2:17 PM EDT Conor Coyle MD LAB BLOOD ORDERABL ES Final Result Performing Organization Address [facility]/ZIP Co de Phone Number [facility] [address] [place] [phone] * HIV-1/2 Antigen and Antibodies, Fourth Generation, with Reflexes (07/30/2024 9:30 AM EDT) HIV AB/AG Nonreactive Nonreactive [facility] Comment:HIV-1 p24 Ag and/or HIV-1/HIV-2 Ab not detected.A test result that is nonreactive does not exclude thepossibility of exposure to or infection with HIV-1 and/orHIV-2. Nonreactive results in this assay for individualswith prior exposure to HIV-1 and/or HIV-2 may be due toantigen and antibody levels that are below the limit ofdetection of this assay.The [employer] HIV Ag/Ab Combo assay result andsupplemental assay results should be interpreted inconjunction with the patient's clinical presentation,history and other laboratory results. If the results areinconsistent with clinical evidence, additional testing issuggested to confirm the result. Blood Venous blood specimen / Unknown 07/30/2024 9:30 AM EDT 07/30/2024 2:17 PM EDT us Conor Coyle MD LAB BLOOD ORDERABL ES Final Result [facility] [address] [place] [phone] * (ABNORMAL) Lipid Panel, Standard (07/02/2024 9:35 AM EST) Triglycerides 64 <150 mg/dL [facility] Comment:Desirable Triglyceri de: less than 150 mg/dLBorderline High Triglyceride 150-199 mg/dLHigh Triglyceride: 200-499 mg/dLVery High Triglyceride: greater than or equal to 5OO mg/dL Cholesterol 157 <200 mg/dL [facility] Comment:Desirable Cholestero l: less than 200 mg/dLBorderline High Cholesterol: 200-239 mg/dLHigh Cholesterol: greater than 239 mg/dL LDL Cholesterol Calculated 104(H) <100 mg/dL [facility] Comment:Desirable LDL: less than 100 mg/dLNear Optimal/Above Optimal LDL: 110- 129 mg/dLBorderline High LDL: 130-159 mg/dLHigh LDL: 160-189 mg/dLVery High LDL: greater than or equal to 190 mg/dL HDL Cholesterol 41 >40 mg/dL [facility] Comment:Desirable HDL: great er than 40 mg/dL Note: This HDL assay may give artificially low results in patients with liver disease. Blood Venous blood specimen / Unknown 07/02/2024 9:35 AM EST 07/02/2024 2:16 PM EST us Conor Coyle MD LAB BLOOD ORDERABL ES Final Result [facility] [address] [place] [phone] from Last 3 Months or Most Recently Relevant to Health Maintenance Insurance [employer] Care Teams Process Control Specialist Relationship Specialty Start Date End Date Conor Mathew MD [address] [place] [phone] PCP - General Internal Medicine 04/07/24
== END 2024-12-01 09:32 | disposition home or self-care (01) ==
LOC: HO.HSMS 08:16
PROVIDERS: Visit Provider Nurse Practitioner Family
DX: G47.33 Obstructive sleep apnea (adult) (pediatric) (principal)
CPT/HCPCS: 99213